=== PATIENT | female | born 1980 | race Caucasian/White ===

== ENCOUNTER 2016-12-01 21:10 | Emergency (ER) | payer BC ==
[2016-12-01 21:24] VITALS: BP 143/78; PULSE 78; RESP 20; TEMP 98.4
[2016-12-01] MEDS ORDERED: AMOXIC-POT CLAV 875MG STARTER 2 EACH TABLET PO STA (21:48)
[2016-12-01] MEDS ORDERED: CIPROFLOXACIN 0.3% OPHTH SOLN 2.5 ML BTL RIGHT EAR STA (21:48)
[2016-12-01] MEDS ORDERED: ACET/COD 300 MG/30 MG STARTER PACK 6 TAB BTL PO STA (21:49)
--- NOTE | 2016-12-01 21:49 | ED ---
ENT HPI - General Chief complaint: Dental/Oral Stated complaint: Dental Time Seen by Provider: 12/01/16 21:24 Source: patient, RN notes reviewed, old records reviewed Mode of arrival: ambulatory Limitations: no limitations - History of Present Illness Initial comments: Patient is a 36-year-old female with chief complaint of left ear pain and left tooth pain for approximately 2 days. Patient reports that she's had some sinus congestion and she has a cold. She denies any significant fever. She reports that her ear feels swollen and she cannot hear out of it. She states that she does have pain over tooth #14. She reports that she's had this tooth fractured many months ago. She has a follow-up with her dentist however she did not have the money at this time. Patient states that for the past few days and if she bites she does have some pain with her teeth. She denies any neck pain, headache, changes in vision. She denies any chest pain or shortness of breath. She denies any abdominal pain nausea or vomiting. Patient has had no recent antibiotics. - Related Data Previous Rx's Medication Instructions Recorded Acetaminophen-Codeine 300-30mg 1 tab PO Q4H PRN #20 tablet 12/01/16 [Tylenol #3] Amoxicillin/Potassium Clav 1 tab PO Q12HR #20 tab 12/01/16 [Augmentin 875-125 Tablet] Allergies Allergy/AdvReac Type Severity Reaction Status Date / Time Sulfa (Sulfonamide Allergy Unknown Verified 12/01/16 21:24 Antibiotics) Childhood Review of Systems ROS Statement: Those systems with pertinent positive or pertinent negative responses have been documented in the HPI. ROS Other: All systems not noted in ROS Statement are negative. Past Medical History Past Medical History: No Reported History History of Any Multi-Drug Resistant Organisms: None Reported Past Surgical History: No Surgical Hx Reported Past Psychological History: No Psychological Hx Reported Smoking Status: Current every day smoker Past Alcohol Use History: None Reported Past Drug Use History: None Reported General Exam - General Exam Comments Initial Comments: Pleasant 36-year-old female in no acute distress. Limitations: no limitations General appearance: alert, in no apparent distress Head exam: Present: atraumatic, normocephalic, normal inspection Eye exam: Present: normal appearance, PERRL, EOMI. Absent: scleral icterus, conjunctival injection, periorbital swelling ENT exam: Present: normal exam, mucous membranes moist, other (No mastoid tenderness.). Absent: normal oropharynx (Patient has fractured tooth 14. No evidence of abscess, erythema or drainage. ), TM's normal bilaterally (Patient has left ear pain and swelling of TM. Patient has evidence of effusion. ) Neck exam: Present: normal inspection. Absent: tenderness, meningismus, lymphadenopathy Respiratory exam: Present: normal lung sounds bilaterally. Absent: respiratory distress, wheezes, rales, rhonchi, stridor Cardiovascular Exam: Present: regular rate, normal rhythm, normal heart sounds. Absent: systolic murmur, diastolic murmur, rubs, gallop, clicks GI/Abdominal exam: Present: soft, normal bowel sounds. Absent: distended, tenderness, guarding, rebound, rigid Extremities exam: Present: normal inspection, full ROM, normal capillary refill. Absent: tenderness, pedal edema, joint swelling, calf tenderness Back exam: Present: normal inspection Neurological exam: Present: alert, oriented X3, CN II-XII intact Psychiatric exam: Present: normal affect, normal mood Skin exam: Present: warm, dry, intact, normal color. Absent: rash Course Vital Signs 12/01/16 21:23 Temperature 98.4 F Pulse Rate 78 Respiratory 20 Rate Blood Pressure 143/78 O2 Sat by Pulse 98 Oximetry Medical Decision Making - Medical Decision Making This is a 36-year-old female chief complaint of left ear pain and effusion for 2 days. She reports she's taken Motrin however does not help. Patient does have significant effusion in the left ear. Patient be treated with Augmentin and Cipro drops. Discussed that she can take Tylenol with Codeine for severe pain. Discussed with the patient that she needs to follow-up with her dentist. Discussed the importance of taking a decongestant such as Sudafed or Mucinex for the fluid behind the ear. Patient agrees treatment plan will comply. Return parameters were discussed. Discussed close follow-up with primary care provider. Disposition Clinical Impression: Left middle ear infection, Toothache, Fractured tooth Disposition: HOME SELF-CARE Condition: Good Instructions: Toothache (ED), Earache (ED) Additional Instructions: Patient advised to follow up with primary care and ENT specialist if symptoms continue to persist. Return to the emergency department if any alarming signs or symptoms occur including severe drainage from the ear severe headache or dizziness. Patient should take entire antibiotic prescription and take pain medications as directed. Patient also needs to take keep decongestant such as Mucinex or Sudafed. Follow-up with your dentist in regards to dental pain. Prescriptions: Acetaminophen-Codeine 300-30mg [Tylenol #3] 1 tab PO Q4H PRN #20 tablet PRN Reason: Pain Amoxicillin/Potassium Clav [Augmentin 875-125 Tablet] 1 tab PO Q12HR #20 tab Referrals: Annie Pool MD [Primary Care Provider] - 1-2 days Time of Disposition: 21:51
== END 2016-12-01 22:19 | disposition home or self-care (01) ==
LOC: EC 21:10
DX: S02.5XXA Fracture of tooth (traumatic), initial encounter for closed fracture (principal); H66.92 Otitis media, unspecified, left ear; F17.200 Nicotine dependence, unspecified, uncomplicated; Z88.2 Allergy status to sulfonamides; X58.XXXA Exposure to other specified factors, initial encounter
CPT/HCPCS: 99283

== ENCOUNTER 2017-04-10 16:49 | Emergency (ER) | payer BC, OTHER ==
[2017-04-10 16:53] VITALS: BP 114/71; PULSE 87; RESP 20; TEMP 98.2
--- NOTE | 2017-04-10 17:05 | ED ---
Upper Extremity HPI - General Chief Complaint: Extremity Injury, Upper Stated Complaint: Thumb Injury Time Seen by Provider: 04/10/17 16:53 Source: patient, RN notes reviewed, old records reviewed Mode of arrival: ambulatory Limitations: no limitations - History of Present Illness Initial Comments: This is a 36 year old female with CC of right thumb pain for 3 weeks. Patient states she initially injured her finger after dropping a log on it. Patient reports she has range of motion of her finger and thumb. She relates she is concerned due to prolonged pain, and wants to ensure it is not broken. Patient reports they pain is worse with movment of the thumb. Denies any peripheral paresthesias. - Related Data Home Medications Medication Instructions Recorded Confirmed No Known Home Medications [No 04/10/17 04/10/17 Known Home Medications] Allergies Allergy/AdvReac Type Severity Reaction Status Date / Time Sulfa (Sulfonamide Allergy Unknown Verified 04/10/17 16:52 Antibiotics) Childhood Review of Systems ROS Statement: Those systems with pertinent positive or pertinent negative responses have been documented in the HPI. ROS Other: All systems not noted in ROS Statement are negative. Past Medical History Past Medical History: No Reported History History of Any Multi-Drug Resistant Organisms: None Reported Past Surgical History: No Surgical Hx Reported Past Psychological History: No Psychological Hx Reported Smoking Status: Current every day smoker Past Alcohol Use History: None Reported Past Drug Use History: None Reported General Exam - General Exam Comments Initial Comments: This is a 36 year old female, no distress. Limitations: no limitations General appearance: alert, in no apparent distress Head exam: Present: atraumatic, normocephalic, normal inspection Eye exam: Present: normal appearance, PERRL, EOMI. Absent: scleral icterus, conjunctival injection, periorbital swelling ENT exam: Present: normal exam, mucous membranes moist Neck exam: Present: normal inspection. Absent: tenderness, meningismus, lymphadenopathy Respiratory exam: Present: normal lung sounds bilaterally. Absent: respiratory distress, wheezes, rales, rhonchi, stridor Cardiovascular Exam: Present: regular rate, normal rhythm, normal heart sounds. Absent: systolic murmur, diastolic murmur, rubs, gallop, clicks GI/Abdominal exam: Present: soft, normal bowel sounds. Absent: distended, tenderness, guarding, rebound, rigid Extremities exam: Present: normal inspection, full ROM, normal capillary refill. Absent: tenderness, pedal edema, joint swelling, calf tenderness Right Hand Wrist exam: Present: normal inspection, full ROM Neuro motor exam: Present: wrist extension intact, thumb opposition intact, thumb IP flexion intact, thumb adduction intact, fingers 2-5 abduction intact Neurosensory exam: Present: radial nerve intact, ulnar nerve intact, median nerve intact Vascular: Present: normal capillary refill Back exam: Present: normal inspection Neurological exam: Present: alert, oriented X3, CN II-XII intact Psychiatric exam: Present: normal affect, normal mood Skin exam: Present: warm, dry, intact, normal color. Absent: rash Course Vital Signs 04/10/17 16:51 Temperature 98.2 F Pulse Rate 87 Respiratory 20 Rate Blood Pressure 114/71 O2 Sat by Pulse 97 Oximetry Medical Decision Making - Medical Decision Making This is a 36 year old female with CC of right thumb pain for 3 weeks. Patient states she initially injured her finger after dropping a log on it. Patient reports she has range of motion of her finger and thumb. She relates she is concerned due to prolonged pain, and wants to ensure it is not broken. Patient xray was reviewed, negative for any acute process. Patient has full range of motion of thumb, neurovacularly intact. Xray was reviewed and shows no osseous abnormlaity, correlate for ligamentous injury. Patient placed in a paul wrap, advised follow up [facility] orthopedic physician. REturn paramters discused. - Radiology Data Radiology results: report reviewed No acute fracture, correlate for ligamentous injury. Disposition Clinical Impression: Strain of thumb Disposition: HOME SELF-CARE Condition: Good Instructions: Hand Sprain (ED) Additional Instructions: Patient advised to take Motrin or Tylenol for pain. Wear the splint. Return to the emergency department if any alarming signs or symptoms occur. Referrals: Annie Pool MD [Primary Care Provider] - 1-2 days Time of Disposition: 17:32
--- NOTE | 2017-04-10 17:29 | XR ---
First digit right hand HISTORY: Trauma and pain 3 views of the first digit of the right hand No comparisons Bone mineralization, joint spaces are maintained. I question some mild subluxation, no natalie dislocat ion at the metacarpophalangeal joint. Correlate for ligamentous laxity. IMPRESSION: No acute fracture, correlate for soft tissue injury.
== END 2017-04-10 17:38 | disposition home or self-care (01) ==
LOC: EC 16:49
DX: S56.011A Strain of flexor muscle, fascia and tendon of right thumb at forearm level, initial encounter (principal); F17.200 Nicotine dependence, unspecified, uncomplicated; Z88.2 Allergy status to sulfonamides; W20.8XXA Other cause of strike by thrown, projected or falling object, initial encounter
CPT/HCPCS: 29125; 99283

== ENCOUNTER 2017-08-19 09:48 | Emergency (ER) | payer OTHER ==
[2017-08-19] MEDS ORDERED: DIPH,PERTUS(ACELL)TETVAC-LF 0.5 ML VIAL IM ONE (11:37)
[2017-08-19 11:42] VITALS: RESP 19
--- NOTE | 2017-08-19 12:16 | ED ---
Upper Extremity HPI - General Chief Complaint: Extremity Injury, Upper Stated Complaint: Jaw pain Time Seen by Provider: 08/19/17 11:10 Source: patient Mode of arrival: ambulatory Limitations: no limitations - History of Present Illness Initial Comments: This is a 37-year-old female who presents with several complaints this morning. She states that about a month ago she slipped and fell on ice but since then has not been able to flex the tip of her right ring finger she also states however that in the interim between then and now she did cut her right thumb on a slicer about couple weeks ago and she states she woke up this morning with pain to the right side of her jaw sweats when she tries open her jaw she also states she has pain that radiates to the middle of her right arm and she also has some pain to the metacarpal phalangeal joint of the right thumb. She denies any other pain or injury she does not related to the fall she has no complaints of any other injuries no complaints of dental pain or cavities. No fevers chills nausea vomiting sweats or other symptoms - Related Data Home Medications Medication Instructions Recorded Confirmed Ibuprofen [Motrin Ib] 200 mg PO Q6H PRN 08/19/17 08/19/17 Vitamin B Complex 1 cap PO DAILY 08/19/17 08/19/17 Previous Rx's Medication Instructions Recorded Cyclobenzaprine [Flexeril] 10 mg PO TID #14 tab 08/19/17 Ibuprofen 800 mg PO Q6HR PRN #20 tablet 08/19/17 Allergies Allergy/AdvReac Type Severity Reaction Status Date / Time Sulfa (Sulfonamide Allergy Unknown Verified 08/19/17 10:08 Antibiotics) Childhood Review of Systems ROS Statement: Those systems with pertinent positive or pertinent negative responses have been documented in the HPI. ROS Other: All systems not noted in ROS Statement are negative. Past Medical History Past Medical History: No Reported History Additional Past Medical History / Comment(s): MS, but does not take medication for it per patient History of Any Multi-Drug Resistant Organisms: None Reported Past Surgical History: No Surgical Hx Reported Past Psychological History: No Psychological Hx Reported Smoking Status: Current every day smoker Past Alcohol Use History: None Reported Past Drug Use History: None Reported General Exam - General Exam Comments Initial Comments: This is a well-developed well-nourished awake alert oriented 3 female Limitations: no limitations General appearance: alert, in no apparent distress Head exam: Present: atraumatic, normocephalic, normal inspection Eye exam: Present: normal appearance, PERRL, EOMI. Absent: scleral icterus, conjunctival injection, periorbital swelling ENT exam: Present: mucous membranes moist, other (Sinus palpation of the right TMJ with opening and closing of the mouth. No step-off or crepitation) Neck exam: Present: normal inspection, full ROM, other (Spinous process tenderness there is tenderness palpation of the lateral right and mid trapezius muscle. No paraspinous muscle tenderness.). Absent: lymphadenopathy Respiratory exam: Present: normal lung sounds bilaterally. Absent: respiratory distress, wheezes, rales, rhonchi, stridor Cardiovascular Exam: Present: regular rate, normal rhythm, normal heart sounds. Absent: systolic murmur, diastolic murmur, rubs, gallop, clicks Extremities exam: Present: normal inspection, normal capillary refill, other ( Tennis palpation or range of motion of the right shoulder no tenderness palpation of the right arm and no palpable cords no elbow tenderness no forearm tenderness or some mild tenderness over the first metacarpal phalangeal joint. No step-off or crepitation and patient is unable to flex the right ring finger distal phalanx.) Back exam: Absent: tenderness Neurological exam: Present: alert, oriented X3, CN II-XII intact Psychiatric exam: Present: normal affect, normal mood Skin exam: Present: warm, dry, intact, normal color. Absent: rash Course Vital Signs 08/19/17 08/19/17 09:52 11:41 Temperature 98.3 F Pulse Rate 100 74 Respiratory 18 19 Rate Blood Pressure 134/90 134/81 O2 Sat by Pulse 100 98 Oximetry Medical Decision Making - Medical Decision Making The patient did present with multiple problems. There is some evidence of TMJ also the evidence of the distal flexor tendon of the right fourth finger as well as pain going down the arm from the trapezius. Patient will be placed on anti-inflammatories and muscle relaxers she is referred over to orthopedics also. - Radiology Data Radiology results: report reviewed (I did review the imaging and reports no acute findings.), image reviewed Disposition Clinical Impression: Trapezius muscle strain, TMJ arthralgia, Injury of flexor tendon of right hand , Radicular pain in right arm Disposition: HOME SELF-CARE Condition: Good Instructions: Neck Pain (ED), Musculoskeletal Pain (ED), Tendon Rupture (ED) Prescriptions: Cyclobenzaprine [Flexeril] 10 mg PO TID #14 tab Ibuprofen 800 mg PO Q6HR PRN #20 tablet PRN Reason: Pain Referrals: Annie Pool MD [Primary Care Provider] - 1-2 days Enoc Byrd DO [Doctor of Osteopathic Medicine] - 1-2 days
--- NOTE | 2017-08-19 12:26 | XR ---
EXAMINATION TYPE: XR hand complete RT DATE OF EXAM: 08/19/2017 CLINICAL HISTORY: pain TECHNIQUE: Frontal, lateral and oblique images of the right hand are obtained. COMPARISON: None. FINDINGS: There is no acute fracture/dislocation evident. The joint spaces appear within normal limi ts. The overlying soft tissue appears unremarkable. IMPRESSION: There is no acute fracture or dislocation ICD 10 NO FRACTURE, INITIAL EVALUATION
--- NOTE | 2017-08-19 12:30 | XR ---
EXAMINATION TYPE: XR mandible complete DATE OF EXAM: 08/19/2017 COMPARISON: NONE HISTORY: Right jaw TECHNIQUE: 5 views submitted FINDINGS: Osseous structures intact. Joint spaces. IMPRESSION: 1. No definite acute fracture. If symptoms persist follow-up CT scan could be obtained.
--- NOTE | 2017-08-19 12:30 | XR ---
EXAMINATION TYPE: XR cervical spine comp DATE OF EXAM: 08/19/2017 CLINICAL HISTORY: pain COMPARISON: NONE TECHNIQUE: Frontal, lateral, oblique, swimmers, and open mouth view of the cervical spine are obtaine d. FINDINGS: The cervical spine is visualized in its entirety from C1 thru the top of T1 level. It is s atisfactory in alignment without evidence of acute fracture or dislocation. The pre-vertebral soft t issue appears within normal limits. Mild degenerative narrowing at C5-6. The C1-C2 articulation is un remarkable on the open mouth view. The oblique images are within normal limits. IMPRESSION: No acute fracture or dislocation is seen in the cervical spine.ICD 10 NO FRACTURE, INITI AL EVALUATION
[2017-08-19 13:20] VITALS: BP 119/78; PULSE 71; TEMP 97.7
== END 2017-08-19 13:25 | disposition home or self-care (01) ==
LOC: EC 09:48
DX: S46.811A Strain of other muscles, fascia and tendons at shoulder and upper arm level, right arm, initial encounter (principal); S66.104A Unspecified injury of flexor muscle, fascia and tendon of right ring finger at wrist and hand level, initial encounter; M26.621 Arthralgia of right temporomandibular joint; F17.200 Nicotine dependence, unspecified, uncomplicated; Z79.899 Other long term (current) drug therapy; Z88.2 Allergy status to sulfonamides; Z23 Encounter for immunization; X58.XXXA Exposure to other specified factors, initial encounter
CPT/HCPCS: 70110; 72050; 90471; 90715; 99283

== ENCOUNTER 2017-10-04 11:24 | Emergency (ER) | payer OTHER ==
[2017-10-04 11:36] VITALS: BP 113/77; PULSE 81; RESP 16; TEMP 97.2
--- NOTE | 2017-10-04 12:30 | ED ---
Upper Extremity HPI - General Chief Complaint: Extremity Injury, Upper Stated Complaint: Hand pain Time Seen by Provider: 10/04/17 12:00 Source: patient Mode of arrival: ambulatory Limitations: no limitations - History of Present Illness Initial Comments: 37-year-old female patient presents to the emergency department today for evaluation of right hand pain. Patient reports that she did have an injury to the hand a couple of weeks ago. States that last evening she was caring a heavy tray when she felt a "pop" in her hand. She states she now has a hard lump to the palmar aspect of the hand just below the fourth digit. She states that the hand has been hurting nonstop since last evening. She states she did take Tylenol 3 without relief of symptoms. She denies any numbness or tingling to the hand. Denies any difficulty with range of motion of the fingers. Patient denies any headache, neck pain, back pain, chest pain, shortness of breath, dizziness, weakness, abdominal pain, nausea, vomiting, or difficulties with bowel movements or urination. - Related Data Home Medications Medication Instructions Recorded Confirmed Ibuprofen [Motrin Ib] 200 mg PO Q6H PRN 08/19/17 10/04/17 Acetaminophen-Codeine 300-30mg 1 tab PO BID PRN 10/04/17 10/04/17 [Tylenol #3] Allergies Allergy/AdvReac Type Severity Reaction Status Date / Time Sulfa (Sulfonamide Allergy Unknown Verified 10/04/17 12:00 Antibiotics) Childhood Review of Systems ROS Statement: Those systems with pertinent positive or pertinent negative responses have been documented in the HPI. ROS Other: All systems not noted in ROS Statement are negative. Past Medical History Past Medical History: No Reported History Additional Past Medical History / Comment(s): MS, but does not take medication for it per patient History of Any Multi-Drug Resistant Organisms: None Reported Past Surgical History: No Surgical Hx Reported Past Psychological History: No Psychological Hx Reported Smoking Status: Current every day smoker Past Alcohol Use History: None Reported Past Drug Use History: None Reported General Exam Limitations: no limitations General appearance: alert, in no apparent distress, other (This is a well- developed, well-nourished adult female patient in no acute distress. Vital signs upon presentation are temperature 97.2F, pulse 81, respirations 16, blood pressure 113/77, pulse ox 99% on room air.) Eye exam: Present: normal appearance, PERRL, EOMI. Absent: scleral icterus, conjunctival injection, periorbital swelling Respiratory exam: Present: normal lung sounds bilaterally. Absent: respiratory distress, wheezes, rales, rhonchi, stridor Cardiovascular Exam: Present: regular rate, normal rhythm, normal heart sounds. Absent: systolic murmur, diastolic murmur, rubs, gallop, clicks Extremities exam: Present: full ROM, tenderness (Tenderness over the fourth metacarpal just beneath the fourth digit.), normal capillary refill, other ( Swelling noted to the palmar aspect of the right hand. Skin is otherwise pink, warm, and dry. Cap refills less than 3 seconds. Radial pulses 2+ and equal bilaterally.). Absent: normal inspection, pedal edema, joint swelling, calf tenderness Neurological exam: Present: alert, oriented X3, CN II-XII intact Psychiatric exam: Present: normal affect, normal mood Skin exam: Present: warm, dry, intact, normal color. Absent: rash Course Vital Signs 10/04/17 11:32 Temperature 97.2 F L Pulse Rate 81 Respiratory 16 Rate Blood Pressure 113/77 O2 Sat by Pulse 99 Oximetry Medical Decision Making - Medical Decision Making 37-year-old female patient percents to the emergency department today for complaints of right hand pain. Physical examination is reveal some tenderness and soft tissue swelling over the fourth metacarpal and palmar aspect. Neurovascular status is intact. X-rays negative for any acute fracture dislocation. Did discuss findings with the patient and recommended she follow up with an orthopedic physician for further evaluation and possible MRI. She is instructed to continue taking home pain medication. She is instructed to return here immediately for any new, worsening, or concerning symptoms. She verbalizes understanding and agrees with this plan. - Radiology Data Radiology results: report reviewed, image reviewed 3 views of the right hand are obtained, no fracture or dislocation evident. Joint spaces and the right hand appear within normal limits. The overlying soft tissue appears unremarkable. Impression by Dr. Uriarte shows no acute fracture dislocation of the right hand. MRI could be performed to evaluate tenderness or soft tissue injury in a patient with persistent pain. Disposition Clinical Impression: Hand pain Disposition: HOME SELF-CARE Condition: Good Instructions: Arthralgia (ED) Additional Instructions: Use Serafin wrap for comfort and support. Follow-up with orthopedics as soon as possible for further evaluation. Continue taking her home pain medication as directed. Return here immediately for any new, worsening, or concerning symptoms. Referrals: Annie Pool MD [Primary Care Provider] - 1-2 days Jp Mckeon DO [Doctor of Osteopathic Medicine] - 1-2 days Time of Disposition: 12:55
--- NOTE | 2017-10-04 12:43 | XR ---
EXAMINATION TYPE: XR hand complete RT DATE OF EXAM: 10/04/2017 CLINICAL HISTORY: Fourth digit pain. Injury approximately one month prior. TECHNIQUE: Frontal, lateral and oblique images of the right hand are obtained. COMPARISON: 08/19/2018 FINDINGS: There is no acute fracture/dislocation evident in the right hand. The joint spaces in the right hand appear within normal limits. The overlying soft tissue appears unremarkable. IMPRESSION: There is no acute fracture or dislocation in the right hand. MRI could be performed to e valuate tenderness or soft tissue injury in a patient with persistent pain.
== END 2017-10-04 13:06 | disposition home or self-care (01) ==
LOC: EC 11:24
DX: M79.641 Pain in right hand (principal); M79.89 Other specified soft tissue disorders; F17.200 Nicotine dependence, unspecified, uncomplicated; Z88.2 Allergy status to sulfonamides
CPT/HCPCS: 99283

== ENCOUNTER 2018-05-17 19:26 | Emergency (ER) | payer OTHER ==
[2018-05-17 19:35] VITALS: BP 145/87; PULSE 94; TEMP 98
--- NOTE | 2018-05-17 20:02 | XR ---
EXAMINATION TYPE: XR chest 2V DATE OF EXAM: 05/17/2018 COMPARISON: 10/30/2011 HISTORY: Cough TECHNIQUE: Frontal and lateral views of the chest are obtained. FINDINGS: Heart and mediastinum are normal. Lungs are clear. Diaphragm is normal. Bony thorax appear s normal. IMPRESSION: Normal chest. No change.
[2018-05-17 20:08] VITALS: RESP 20
[2018-05-17] MEDS ORDERED: predniSONE 20 MG TAB PO STA (20:08)
[2018-05-17] MEDS ORDERED: IPRATROPIUM-ALBUTEROL 3 ML NEB INHALATION STA (20:08)
--- NOTE | 2018-05-17 20:19 | ED ---
URI HPI - General Chief Complaint: Upper Respiratory Infection Stated Complaint: cough Time Seen by Provider: 05/17/18 19:42 Source: patient Mode of arrival: ambulatory Limitations: no limitations - History of Present Illness Initial Comments: 37-year-old female with past medical history of MS, half pack per day smoking 20 years who presents for chief complaint of congestion, dry cough 2 weeks. Patient states that she has been congested the past 2 weeks taking Mucinex, DayQuil/NyQuil however has not received any relief from these products. Patient denies body aches, rigors, wheezing, dyspnea upon exertion, chest pain, shortness of breath, fever, chills, sore throat, diarrhea, nausea, vomiting, ear pain or any other associated symptoms. Pt states she has had walking pneumonia in the past and wanted to make sure this was not what she was experiencing. Remainder of ROS (-). - Related Data Previous Rx's Medication Instructions Recorded Albuterol Inhaler [Ventolin Hfa 1 - 2 puff INHALATION RT-Q6H PRN 7 05/17/18 Inhaler] Days #1 inhaler Azithromycin [Zithromax Tri-Killian] 500 mg PO DAILY 3 Days #3 tab 05/17/18 Loratadine [Claritin] 10 mg PO DAILY 5 Days #5 tab 05/17/18 Allergies Allergy/AdvReac Type Severity Reaction Status Date / Time Sulfa (Sulfonamide Allergy Unknown Verified 10/04/17 12:00 Antibiotics) Childhood Review of Systems ROS Statement: Those systems with pertinent positive or pertinent negative responses have been documented in the HPI. ROS Other: All systems not noted in ROS Statement are negative. Constitutional: Denies: fever, chills, weight change, night sweats Eyes: Denies: eye pain ENT: Denies: ear pain, throat pain Respiratory: Reports: cough. Denies: dyspnea, wheezes, hemoptysis, stridor Cardiovascular: Denies: chest pain, palpitations, dyspnea on exertion Endocrine: Denies: fatigue Gastrointestinal: Denies: abdominal pain, nausea, vomiting, diarrhea, constipation Genitourinary: Denies: urgency, dysuria, frequency Musculoskeletal: Denies: back pain Skin: Denies: rash, lesions Neurological: Denies: headache Past Medical History Past Medical History: No Reported History Additional Past Medical History / Comment(s): MS, but does not take medication for it per patient History of Any Multi-Drug Resistant Organisms: None Reported Past Surgical History: No Surgical Hx Reported Past Psychological History: No Psychological Hx Reported Smoking Status: Current every day smoker Past Alcohol Use History: None Reported Past Drug Use History: None Reported General Exam - General Exam Comments Initial Comments: General: The patient is awake and alert, in no distress, and does not appear acutely ill. Eye: Pupils are equal, round and reactive to light, extra-ocular movements are intact. No nystagmus. There is normal conjunctiva bilaterally. No signs of icterus. Ears, nose, mouth and throat: There are moist mucous membranes and no oral lesions. Oropharynx is non erythematous, no enlargement of tonsils or exudates. Post nasal drip. Neck: The neck is supple, there is no tenderness or JVD. Cardiovascular: There is a regular rate and rhythm. No murmur, rub or gallop is appreciated. Respiratory: No use of accessory muscles, cyanosis, retractions. Respirations are non-labored, breath sounds are equal. No wheezes, stridor, rales. Mild expiratory rhonchi in all lung jaime. Musculoskeletal: Normal ROM, no tenderness. Strength 5/5. Sensation intact. Radial pulses equal bilaterally 2+. Neurological: A&O x 3. CN II-XII intact, There are no obvious motor or sensory deficits. Coordination appears grossly intact. Speech is normal. Skin: Skin is warm and dry and no rashes or lesions are noted. Psychiatric: Cooperative, appropriate mood & affect, normal judgment. Limitations: no limitations Course Vital Signs 05/17/18 05/17/18 05/17/18 19:31 20:07 20:26 Temperature 98.0 F Pulse Rate 94 94 Respiratory 18 20 Rate Blood Pressure 145/87 O2 Sat by Pulse 98 Oximetry 05/17/18 20:33 Temperature Pulse Rate 94 Respiratory Rate Blood Pressure O2 Sat by Pulse Oximetry Medical Decision Making - Medical Decision Making CXR (-) . PE as noted above, pt given Duoneb for mild rhonchi. Rhonchi resolved with treatment. At this time I feel pt has a URI. Case discussed in detail with Dr. Stovall. Pt given RX for azithromycin x3 days, albuterol inhaler and claritin for symptom relief/occult pneumonia. Pt appears well VS within acceptable limits, pt is stable for discharge with primary care f/u in the next 1-2 days. All results were discussed with patient. Patient agrees with plan, denying any questions at this time. Disposition Clinical Impression: Upper respiratory infection Disposition: HOME SELF-CARE Condition: Good Instructions: Upper Respiratory Infection (ED) Additional Instructions: Please use medication as discussed. Please follow-up with family doctor in the next 2 days. Please return to emergency room if the symptoms increase or worsen or for any other concerns. Prescriptions: Albuterol Inhaler [Ventolin Hfa Inhaler] 1 - 2 puff INHALATION RT-Q6H PRN 7 Days #1 inhaler PRN Reason: Wheezing Azithromycin [Zithromax Tri-Killian] 500 mg PO DAILY 3 Days #3 tab Loratadine [Claritin] 10 mg PO DAILY 5 Days #5 tab Is patient prescribed a controlled substance at d/c from ED?: No Referrals: Annie Pool MD [Primary Care Provider] - 1-2 days Time of Disposition: 20:41
== END 2018-05-17 20:45 | disposition home or self-care (01) ==
LOC: EC 19:26
DX: J06.9 Acute upper respiratory infection, unspecified (principal); F17.210 Nicotine dependence, cigarettes, uncomplicated; Z88.2 Allergy status to sulfonamides
CPT/HCPCS: 99283; 94640; 71046; J7512

== ENCOUNTER 2018-05-22 15:20 | Emergency (ER) | payer OTHER ==
[2018-05-22] MEDS ORDERED: IPRATROPIUM-ALBUTEROL 3 ML NEB INHALATION STA ×2 (15:36→16:24)
[2018-05-22] MEDS ORDERED: methylPREDNISolone SOD SUCCI 125 MG/2 ML VIAL IV STA (15:36)
[2018-05-22] MEDS ORDERED: SODIUM CHLORIDE 0.9% 1,000 ML IV STA (15:36)
--- NOTE | 2018-05-22 15:44 | ED ---
URI HPI - General Chief Complaint: Upper Respiratory Infection Stated Complaint: URI Time Seen by Provider: 05/22/18 15:32 Source: patient, RN notes reviewed, old records reviewed Mode of arrival: ambulatory Limitations: no limitations - History of Present Illness Initial Comments: This is a 37-year-old female who has a 20 year history of smoking one half pack cigarettes per day but no diagnosis of asthma or COPD who presents today with complaints of persistent cough shortness of breath a feeling of full of some left ear and neck and better in spite of medications that was given to her one week ago in this emergency department. She presented at that time with a two- week history of cough upper respiratory symptoms she was given antibiotics and updrafts she states she's not been able to smoke as much. She denies any fevers chills sweats chest pain or other symptoms at this time MD Complaint: cough, nasal congestion, other - Related Data Previous Rx's Medication Instructions Recorded Albuterol Inhaler [Ventolin Hfa 1 - 2 puff INHALATION RT-Q6H PRN 7 05/17/18 Inhaler] Days #1 inhaler Azithromycin [Zithromax Tri-Killian] 500 mg PO DAILY 3 Days #3 tab 05/17/18 Loratadine [Claritin] 10 mg PO DAILY 5 Days #5 tab 05/17/18 Doxycycline [Vibramycin] 100 mg PO BID #14 cap 05/22/18 Ipratropium-Albuterol Nebulize 3 ml INHALATION Q6HR PRN #120 neb 05/22/18 [Duoneb 0.5 mg-3 mg/3 ml Soln] Ipratropium/Albuterol Sulfate 2 puff INHALATION QID #1 inhaler 05/22/18 [Combivent Respimat Inhaler] Promethazine HCl [Phenergan Syrup] 12.5 mg PO Q6HR #280 bottle 05/22/18 predniSONE 20 mg PO BID #10 tab 05/22/18 Allergies Allergy/AdvReac Type Severity Reaction Status Date / Time Sulfa (Sulfonamide Allergy Unknown Verified 05/22/18 15:30 Antibiotics) Childhood Review of Systems ROS Statement: Those systems with pertinent positive or pertinent negative responses have been documented in the HPI. ROS Other: All systems not noted in ROS Statement are negative. Past Medical History Past Medical History: No Reported History Additional Past Medical History / Comment(s): MS, but does not take medication for it per patient History of Any Multi-Drug Resistant Organisms: None Reported Past Surgical History: No Surgical Hx Reported Past Psychological History: No Psychological Hx Reported Smoking Status: Current every day smoker Past Alcohol Use History: None Reported Past Drug Use History: None Reported General Exam - General Exam Comments Initial Comments: This is a well-developed well-nourished awake alert oriented 3 female Limitations: no limitations General appearance: alert, in no apparent distress Head exam: Present: atraumatic, normocephalic, normal inspection Eye exam: Present: normal appearance, PERRL, EOMI. Absent: scleral icterus, conjunctival injection, periorbital swelling ENT exam: Present: mucous membranes dry, other (Pelvis the left tympanic membrane) Neck exam: Present: normal inspection. Absent: tenderness, meningismus, lymphadenopathy Respiratory exam: Present: wheezes, decreased breath sounds (Diffuse wheezing. Expiratory and inspiratory). Absent: respiratory distress, rales, rhonchi, stridor Cardiovascular Exam: Present: regular rate, normal rhythm, normal heart sounds. Absent: systolic murmur, diastolic murmur, rubs, gallop, clicks GI/Abdominal exam: Present: soft, normal bowel sounds. Absent: distended, tenderness, guarding, rebound, rigid Extremities exam: Present: normal inspection, full ROM, normal capillary refill. Absent: tenderness, pedal edema, joint swelling, calf tenderness Back exam: Present: normal inspection Neurological exam: Present: alert, oriented X3, CN II-XII intact Psychiatric exam: Present: normal affect, normal mood Skin exam: Present: warm, dry, intact, normal color. Absent: rash Course Vital Signs 05/22/18 05/22/18 05/22/18 15:28 15:30 16:19 Temperature 97.9 F Pulse Rate 106 H 88 Respiratory 20 16 Rate Blood Pressure 136/95 O2 Sat by Pulse 97 Oximetry 05/22/18 05/22/18 05/22/18 16:25 16:26 16:35 Temperature Pulse Rate 88 86 86 Respiratory Rate Blood Pressure O2 Sat by Pulse Oximetry - Reevaluation(s) Reevaluation #1: 05/22/18 16:04 The patient has refused IV or lab work. She has agreed to an updraft and a chest x-ray. Reevaluation #2: 05/22/18 16:31 Reevaluation after the initial updraft revealed increased aeration still a lot of wheezing patient is required a repeat updraft. Medical Decision Making - Medical Decision Making Reevaluation patient reveals much improvement in her aeration still some occasional scattered wheezes. After long discussions with the patient she will be discharged with appropriate medication. She is a follow-up with her doctor return. She again was encouraged to quit smoking - Radiology Data Radiology results: report reviewed (I did review the imaging and report no acute findings.), image reviewed Disposition Clinical Impression: Asthmatic bronchitis, Smoking Disposition: HOME SELF-CARE Condition: Good Instructions: Bronchospasm (ED), Wheezing (ED), How to Use a Nebulizer (ED), Acute Bronchitis (ED), How to Stop Smoking (ED) Prescriptions: Doxycycline [Vibramycin] 100 mg PO BID #14 cap Ipratropium-Albuterol Nebulize [Duoneb 0.5 mg-3 mg/3 ml Soln] 3 ml INHALATION Q6HR PRN #120 neb PRN Reason: Dyspnea Ipratropium/Albuterol Sulfate [Combivent Respimat Inhaler] 2 puff INHALATION QID #1 inhaler predniSONE 20 mg PO BID #10 tab Promethazine HCl [Phenergan Syrup] 12.5 mg PO Q6HR #280 bottle Is patient prescribed a controlled substance at d/c from ED?: No Referrals: Annie Pool MD [Primary Care Provider] - 1-2 days
[2018-05-22] MEDS ORDERED: predniSONE 50 MG TAB PO STA (16:03)
--- NOTE | 2018-05-22 16:40 | XR ---
EXAMINATION TYPE: XR chest 2V DATE OF EXAM: 05/22/2018 COMPARISON: NONE HISTORY: Difficulty breathing TECHNIQUE: Frontal and lateral views of the chest are obtained. FINDINGS: Heart and mediastinum are normal. Lungs are clear. Diaphragm is normal. Bony thorax appear s normal. IMPRESSION: Normal chest.
[2018-05-22 17:26] VITALS: BP 130/90; PULSE 90; RESP 18; TEMP 98
== END 2018-05-22 17:20 | disposition home or self-care (01) ==
LOC: EC 15:20
DX: J45.909 Unspecified asthma, uncomplicated (principal); F17.210 Nicotine dependence, cigarettes, uncomplicated; Z88.2 Allergy status to sulfonamides; Z53.29 Procedure and treatment not carried out because of patient's decision for other reasons
CPT/HCPCS: 94640 ×2; 71046; 99284; J7512

== ENCOUNTER 2019-01-15 14:39 | Emergency (ER) | payer OTHER ==
[2019-01-15 14:49] VITALS: BP 135/93; PULSE 71; RESP 18; TEMP 97.9
--- NOTE | 2019-01-15 14:57 | ED ---
Wound/Laceration HPI - General Chief Complaint: Wound/Laceration Stated Complaint: Finger Lac Time Seen by Provider: 01/15/19 14:50 Source: patient, RN notes reviewed Mode of arrival: ambulatory Limitations: no limitations - History of Present Illness Initial Comments: 38-year-old female presents emergency Department chief complaint laceration to her right hand fourth digit. Patient states his happened last night when she cut it on a broken window. Patient states she is intoxicated and did not come emergency department the time. Patient states her tetanus is up-to-date 4 years ago. Patient states she has some discomfort that finger has full range of motion denies any paresthesias. Patient states she put some tape on it which has helped her bleeding. - Related Data Previous Rx's Medication Instructions Recorded Albuterol Inhaler [Ventolin Hfa 1 - 2 puff INHALATION RT-Q6H PRN 7 05/17/18 Inhaler] Days #1 inhaler Azithromycin [Zithromax Tri-Killian] 500 mg PO DAILY 3 Days #3 tab 05/17/18 Loratadine [Claritin] 10 mg PO DAILY 5 Days #5 tab 05/17/18 Doxycycline [Vibramycin] 100 mg PO BID #14 cap 05/22/18 Ipratropium-Albuterol Nebulize 3 ml INHALATION Q6HR PRN #120 neb 05/22/18 [Duoneb 0.5 mg-3 mg/3 ml Soln] Ipratropium/Albuterol Sulfate 2 puff INHALATION QID #1 inhaler 05/22/18 [Combivent Respimat Inhaler] Promethazine HCl [Phenergan Syrup] 12.5 mg PO Q6HR #280 bottle 05/22/18 predniSONE 20 mg PO BID #10 tab 05/22/18 Cephalexin [Keflex] 500 mg PO Q8HR #21 cap 01/15/19 Allergies Allergy/AdvReac Type Severity Reaction Status Date / Time Sulfa (Sulfonamide Allergy Unknown Verified 05/22/18 15:30 Antibiotics) Childhood Review of Systems ROS Statement: Those systems with pertinent positive or pertinent negative responses have been documented in the HPI. ROS Other: All systems not noted in ROS Statement are negative. Past Medical History Past Medical History: No Reported History Additional Past Medical History / Comment(s): MS, but does not take medication for it per patient History of Any Multi-Drug Resistant Organisms: None Reported Past Surgical History: No Surgical Hx Reported Past Psychological History: No Psychological Hx Reported Smoking Status: Current every day smoker Past Alcohol Use History: None Reported Past Drug Use History: None Reported General Exam Limitations: no limitations General appearance: alert, in no apparent distress Head exam: Present: atraumatic, normocephalic, normal inspection Respiratory exam: Present: normal lung sounds bilaterally. Absent: respiratory distress, wheezes, rales, rhonchi, stridor Cardiovascular Exam: Present: regular rate, normal rhythm, normal heart sounds. Absent: systolic murmur, diastolic murmur, rubs, gallop, clicks Extremities exam: Present: other (Right hand fourth digit there is a 1 cm laceration at the PIP full range of motion neurovascular intact no active bleeding) Course Vital Signs 01/15/19 14:44 Temperature 97.9 F Pulse Rate 71 Respiratory 18 Rate Blood Pressure 135/93 O2 Sat by Pulse 97 Oximetry Medical Decision Making - Medical Decision Making 38-year-old female presented for finger laceration. This is an old wound over 12 hours old. I did recommend x-rays patient refused. Patient will have Steri- Strips placed, gauze wrap applied. Patient will given finger splint to prevent her pending for next 24 hours. Patient will follow-up with PCP and return for any worsening symptoms. She does understand risk of infection at this time. Patient was placed on antibiotics. Disposition Clinical Impression: Finger laceration Disposition: HOME SELF-CARE Condition: Stable Instructions (If sedation given, give patient instructions): Laceration (ED) Additional Instructions: Please return to the Emergency Department if symptoms worsen or any other concerns. Prescriptions: Cephalexin [Keflex] 500 mg PO Q8HR #21 cap Is patient prescribed a controlled substance at d/c from ED?: No Referrals: Annie Pool MD [Primary Care Provider] - 1-2 days Time of Disposition: 14:57
== END 2019-01-15 15:05 | disposition home or self-care (01) ==
LOC: EC 14:39
DX: S61.214A Laceration without foreign body of right ring finger without damage to nail, initial encounter (principal); F17.200 Nicotine dependence, unspecified, uncomplicated; Z88.2 Allergy status to sulfonamides; W26.8XXA Contact with other sharp object(s), not elsewhere classified, initial encounter
CPT/HCPCS: 99282

== ENCOUNTER 2019-02-11 22:49 | Observation (INO) | payer OTHER ==
[2019-02-11] MEDS ORDERED: SODIUM CHLORIDE 0.9% 1,000 ML IV STA (22:58)
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
[2019-02-11] MEDS ORDERED: KETAMINE 10 MG/ML 20 ML VIAL IV ONE (23:37)
[2019-02-11 23:48] LABS: Basophils % (A) 1 %; Eosinophils # (A) 0.2 k/uL (0-0.7); Eosinophils % (A) 3 %; HCT 45.6 % (34.0-46.0); HGB 14.9 gm/dL (11.4-16.0); Lymphocytes # (A) 1.3 k/uL (1.0-4.8); Lymphocytes % (A) 21 %; MCH 34.9 pg (25.0-35.0); MCHC 32.6 g/dL (31.0-37.0); MCV 107.1 fL (80.0-100.0); Macrocytosis Moderate; Mean Platelet Volume 6.9; Monocytes # (A) 0.5 k/uL (0-1.0); Monocytes % (A) 7 %; Neutrophils # (A) 4.2 k/uL (1.3-7.7); Neutrophils % (A) 66 %; Platelet Count 230 k/uL (150-450); RBC 4.25 m/uL (3.80-5.40); RDW 13.1 % (11.5-15.5); WBC 6.3 k/uL (3.8-10.6)
[2019-02-11 23:57] LABS: ALT 21 U/L (9-52); AST 31 U/L (14-36); African American GFR (CKD) >90 (>60 ml/min/1.73 sqM); Albumin 4.1 g/dL (3.5-5.0); Alkaline Phosphatase 90 U/L (38-126); Anion Gap 10 mmol/L; Blood Urea Nitrogen 10 mg/dL (7-17); Calcium 9.1 mg/dL (8.4-10.2); Carbon Dioxide 23 mmol/L (22-30); Chloride 111 mmol/L (98-107); Glucose 101 mg/dL (74-99); Potassium 3.7 mmol/L (3.5-5.1); Sodium 144 mmol/L (137-145); Total Bilirubin 0.4 mg/dL (0.2-1.3)
[2019-02-12 00:05] LABS: INR 0.9 (<1.2); Partial Thromboplastin Time 27.6 sec (22.0-30.0); Prothrombin Time 9.5 sec (9.0-12.0)
[2019-02-12 00:21] LABS: Alcohol 355 mg/dL
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
[2019-02-12] MEDS ORDERED: KETAMINE 10 MG/ML 20 ML VIAL IVPB STA ×3 (01:10→01:27)
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
[2019-02-12 02:37] LABS: Appearance,Urine Clear (Clear); Bilirubin,Urine Negative (Negative); Blood,Urine Negative (Negative); Color,Urine Colorless; Glucose,Urine (UA) Negative (Negative); Ketones,Urine Negative (Negative); Leukocyte Esterase,Urine Negative (Negative); Nitrite,Urine Negative (Negative); PH, Urine 6.5 (5.0-8.0); Protein,Urine Negative (Negative); Specific Gravity,Urine 1.011 (1.001-1.035); Urobilinogen,Urine <2.0 mg/dL (<2.0)
[2019-02-12 02:49] LABS: Amphetamine Screen,Urine Not Detected (NotDetected); Barbiturate Screen,Urine Not Detected (NotDetected); Benzodiazepines Screen,Urine Not Detected (NotDetected); Cocaine Screen,Urine Not Detected (NotDetected); Methadone Screen, Urine Not Detected (NotDetected); Opiate Screen,Urine Not Detected (NotDetected); Oxycodone Screen, Urine Not Detected (NotDetected); Phencyclidine Screen,Urine Not Detected (NotDetected); Tricyclic Antidepressant,Urine Not Detected (NotDetected); Urn Cannabinoid Scrn Detected (NotDetected)
[2019-02-12] MEDS ORDERED: HALOPERIDOL LACTATE 5 MG/ML 1 ML VIAL IM PRN (02:56)
[2019-02-12] MEDS ORDERED: THIAMINE 100 MG/ML 2 ML VIAL IM STA (03:00)
[2019-02-12] MEDS ORDERED: LORazepam 2 MG/ML INJ IV PRN ×3 (03:00)
[2019-02-12] MEDS ORDERED: NALOXONE 0.4 MG/ML 1 ML VIAL IV PRN (03:17)
[2019-02-12 07:25] VITALS: BP 122/76; PULSE 76; RESP 16; TEMP 97.7
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
[2019-02-13] MEDS ORDERED: THIAMINE 100 MG TAB PO SCH (07:30)
== END 2019-02-12 10:47 | disposition left against medical advice (07) ==
LOC: EC 22:49 → 1SOBS 02-12 03:18
PROVIDERS: ADMIT Internal Medicine; ATTEND Internal Medicine
DX: Z04.1 Encounter for examination and observation following transport accident (principal); F10.229 Alcohol dependence with intoxication, unspecified; S00.81XA Abrasion of other part of head, initial encounter; Y90.8 Blood alcohol level of 240 mg/100 ml or more; F12.20 Cannabis dependence, uncomplicated; F17.210 Nicotine dependence, cigarettes, uncomplicated; G35 Multiple sclerosis; Z88.2 Allergy status to sulfonamides; V89.0XXA Person injured in unspecified motor-vehicle accident, nontraffic, initial encounter
CPT/HCPCS: 96374; 96361 ×2; 96372; 99285; 36415; 93005; 86900; 86901; 80053; 84484; 85025; 85610; 85730; 86850; 81003; 81025; 80306; 80320; 72170; 71045; 72125; 70450; 71260; 74177; G0378; J2060; J1630; J3411; Q9967

== ENCOUNTER 2019-03-21 17:28 | Emergency (ER) | payer OTHER ==
[2019-03-21 17:43] VITALS: TEMP 98.7
[2019-03-21 18:38] VITALS: BP 143/91; PULSE 80; RESP 16
[2019-03-21 18:45] LABS: Appearance,Urine Cloudy (Clear); Bilirubin,Urine Negative (Negative); Blood,Urine Negative (Negative); Color,Urine Yellow; Glucose,Urine (UA) Negative (Negative); Ketones,Urine Negative (Negative); Leukocyte Esterase,Urine Negative (Negative); Mucus,Urine Rare /hpf; Nitrite,Urine Negative (Negative); Protein,Urine Trace (Negative); RBC,Urine 4 /hpf (0-5); Squamous Epithelial Cell,Urine 4 /hpf (0-4); Urobilinogen,Urine <2.0 mg/dL (<2.0); WBC,Urine 4 /hpf (0-5)
[2019-03-21] MEDS ORDERED: cefTRIAXone 250 MG VIAL IM STA (19:00)
--- NOTE | 2019-03-21 19:01 | ED ---
Female Urogenital HPI - General Chief complaint: Urogenital Stated complaint: Stomach pain Time Seen by Provider: 03/21/19 17:56 Source: patient Mode of arrival: ambulatory Limitations: no limitations - History of Present Illness Initial comments: Patient is a 38-year-old female presenting to the emergency department with complaints of vaginal discharge and irritation 2 days. Patient admits to having unprotected intercourse and thinks she may have an STD. Patient states she has low back and suprapubic pain and this is same way she felt when she had trichomonas before. Patient admits her discharge is white or creamy colored. Patient denies having fever, chills, nausea, vomiting, diarrhea. Patient has no other complaints at this time. Vital signs are stable, afebrile. Last Menstrual Period: 03/07/19 - Related Data Previous Rx's Medication Instructions Recorded Azithromycin [Zithromax] 500 mg PO DAILY 1 Days #2 tab 03/21/19 Allergies Allergy/AdvReac Type Severity Reaction Status Date / Time Sulfa (Sulfonamide Allergy Unknown Verified 03/21/19 17:43 Antibiotics) Childhood Review of Systems ROS Statement: Those systems with pertinent positive or pertinent negative responses have been documented in the HPI. ROS Other: All systems not noted in ROS Statement are negative. Past Medical History Past Medical History: No Reported History Additional Past Medical History / Comment(s): MS, but does not take medication for it per patient, ETOH abuse History of Any Multi-Drug Resistant Organisms: None Reported Past Surgical History: No Surgical Hx Reported Past Psychological History: No Psychological Hx Reported Smoking Status: Current every day smoker Past Alcohol Use History: Abuse, Daily, Heavy Past Drug Use History: None Reported, Marijuana General Exam - General Exam Comments Initial Comments: GENERAL: Well-appearing, well-nourished and in no acute distress. HEAD: Atraumatic, normocephalic. EYES: Pupils equal round and reactive to light, extraocular movements intact, sclera anicteric, conjunctiva are normal. ENT: TMs normal, nares patent, oropharynx clear without exudates. Moist mucous membranes. NECK: Normal range of motion, supple without lymphadenopathy or JVD. LUNGS: Breath sounds clear to auscultation bilaterally and equal. No wheezes rales or rhonchi. HEART: Regular rate and rhythm without murmurs, rubs or gallops. ABDOMEN: Soft, nontender, normoactive bowel sounds. No guarding, no rebound. No masses appreciated. EXTREMITIES: Normal range of motion, no pitting or edema. No clubbing or cyanosis. NEUROLOGICAL: Cranial nerves II through XII grossly intact. Normal speech, normal gait. PSYCH: Normal mood, normal affect. SKIN: Warm, Dry, normal turgor, no rashes or lesions noted. Limitations: no limitations External exam: Present: normal external exam. Absent: erythema, swelling Speculum exam: Present: vaginal discharge (White, milky). Absent: cervical discharge, vaginal bleeding, foreign body By manual exam: Present: normal by manual exam Course Vital Signs 03/21/19 03/21/19 17:41 18:37 Temperature 98.7 F Pulse Rate 111 H 80 Respiratory 18 16 Rate Blood Pressure 142/85 143/91 O2 Sat by Pulse 97 99 Oximetry Medical Decision Making - Medical Decision Making Patient is a 38-year-old female presenting with vaginal discharge 2 days. Patient minutes to having unprotected intercourse with new partners. Vital signs are stable, afebrile. exam reveals white no acute discharge, swabs were obtained. Gonorrhea and committed is pending at this time. Trichomonas was negative. UA is within normal limits. Risk and benefits of being treated for gonorrhea and committed via were discussed with the patient and she wanted treatment at this time. Patient will be given Rocephin and Rx for azithromycin. Return parameters were discussed with the patient she verbalized understanding. Discussed with patient to always use protection. Patient is stable for discharge. - Lab Data Lab Results 03/21/19 03/21/19 03/21/19 Range/Units 18:35 18:35 18:35 Urine Color Yellow Urine Appearance Cloudy H (Clear) Urine pH 8.0 (5.0-8.0) Ur Specific [place] 1.020 (1.001-1.035) Urine Protein Trace H (Negative) Urine Glucose (UA) Negative (Negative) Urine Ketones Negative (Negative) Urine Blood Negative (Negative) Urine Nitrite Negative (Negative) Urine Bilirubin Negative (Negative) Urine Urobilinogen <2.0 (<2.0) mg/dL Ur Leukocyte Esterase Negative (Negative) Urine RBC 4 (0-5) /hpf Urine WBC 4 (0-5) /hpf Ur Squamous Epith Cells 4 (0-4) /hpf Urine Mucus Rare H (None) /hpf Urine HCG, Qual Not Detected (Not Detectd) Trichomonas Ag (Rapid) Negative (Negative) Disposition Clinical Impression: Vaginal Discharge Disposition: HOME SELF-CARE Condition: Stable Instructions (If sedation given, give patient instructions): Vaginitis (ED) Additional Instructions: Please return to the Emergency Department if symptoms worsen or any other concerns. Prescriptions: Azithromycin [Zithromax] 500 mg PO DAILY 1 Days #2 tab Is patient prescribed a controlled substance at d/c from ED?: No Referrals: Eileen Keys MD [Primary Care Provider] - 1-2 days
[2019-03-22 15:07] LABS: C. trachomatis,PCR Negative (Neg,Equiv); Chlamydia trachomatis Source Cervix; N. gonorrhoeae,PCR Negative (Neg,Equiv); Neisseria Source Cervix
== END 2019-03-21 19:15 | disposition home or self-care (01) ==
LOC: EC 17:28
DX: N93.8 Other specified abnormal uterine and vaginal bleeding (principal); F17.200 Nicotine dependence, unspecified, uncomplicated; Z88.2 Allergy status to sulfonamides
CPT/HCPCS: 81001; 81025; 87808; 87491; 87591; 99284; 96372; J0696

== ENCOUNTER → 2021-01-20 | Outpatient (CLI) | payer OTHER ==
--- NOTE | 2021-01-20 13:11 | US ---
EXAMINATION TYPE: US pelvic complete DATE OF EXAM: 01/20/2021 COMPARISON: CLINICAL HISTORY: N94.6 Dysmenorrhea, N92.6 Irregular menstruation. Patient states having irregular m enses TECHNIQUE: Transabdominal (TA). Transabdominal sonographic images of the pelvis were acquired. Date of LMP: 12/25/2020, EXAM MEASUREMENTS: Uterus: 9.5 x 5.6 x 5.1 cm Endometrial Stripe: 0.8 cm Right Ovary: 2.6 x 1.9 x 2.0 cm Left Ovary: 3.1 x 2.1 x 1.8 cm 1. Uterus: Anteverted wnl 2. Endometrium: wnl 3. Right Ovary: follicles seen 4. Left Ovary: follicles seen 5. Bilateral Adnexa: wnl 6. Posterior cul-de-sac: no free fluid IMPRESSION: No definite sonographic abnormality of the uterus or ovaries.
== END | disposition home or self-care (01) ==
LOC: RADUSWWP 12:12
PROVIDERS: ATTEND Family Medicine
DX: N92.6 Irregular menstruation, unspecified (principal); N94.6 Dysmenorrhea, unspecified
CPT/HCPCS: 76856

== ENCOUNTER 2022-12-14 02:20 | Emergency (ER) | payer OTHER ==
[2022-12-14 02:49] VITALS: BP 139/98; PULSE 89; RESP 18; TEMP 97.6
--- NOTE | 2022-12-14 03:34 | ED ---
Alcohol HPI - General Chief Complaint: Alcohol Stated Complaint: Drug Test Time Seen by Provider: 12/14/22 02:26 Source: patient, RN notes reviewed Mode of arrival: ambulatory Limitations: no limitations - History of Present Illness Initial Comments: This is a 42-year-old female who presents to the emergency department for alcohol intoxication. 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 Patient declines to be seen by any of the ER providers and strictly requests IHS testing. She has no concerns or complaints at this time. MD Complaint: alcohol intoxication - Related Data Previous Rx's Medication Instructions Recorded Azithromycin [Zithromax] 500 mg PO DAILY 1 Days #2 tab 03/21/19 Albuterol Nebulized [Ventolin 2.5 mg INHALATION Q4H PRN 8 Days 10/12/22 Nebulized] #150 ml Promethazine/Dextromethorphan 5 ml PO Q4-6H PRN #473 ml 10/12/22 [Promethazine-Dm Syrup] predniSONE 50 mg PO DAILY 5 Days #5 tab 10/12/22 Allergies Allergy/AdvReac Type Severity Reaction Status Date / Time Sulfa (Sulfonamide Allergy Unknown Verified 10/31/20 17:56 Antibiotics) Childhood Review of Systems ROS Statement: Those systems with pertinent positive or pertinent negative responses have been documented in the HPI. ROS Other: All systems not noted in ROS Statement are negative. Past Medical History Past Medical History: No Reported History Additional Past Medical History / Comment(s): MS, but does not take medication for it per patient, ETOH abuse History of Any Multi-Drug Resistant Organisms: None Reported Past Surgical History: No Surgical Hx Reported Past Psychological History: No Psychological Hx Reported Smoking Status: Never smoker Past Alcohol Use History: Abuse, Daily, Heavy Past Drug Use History: None Reported, Marijuana General Exam Limitations: no limitations Course Vital Signs 12/14/22 02:45 Temperature 97.6 F Pulse Rate 89 Respiratory 18 Rate Blood Pressure 139/98 O2 Sat by Pulse 97 Oximetry Medical Decision Making - Medical Decision Making As listed above, patient declines to be seen by any of the emergency department providers and thus physical examination was not performed. IHS testing with breath alcohol test and urine drug screen obtained per requirements. BAT was 0.14. Patient discharged into the care of her forest supervisor and union rep. Disposition Clinical Impression: Alcoholic intoxication Disposition: HOME SELF-CARE Is patient prescribed a controlled substance at d/c from ED?: No Referrals: Magda Baker NPC [Primary Care Provider] - 1-2 days
== END 2022-12-14 03:13 | disposition home or self-care (01) ==
LOC: EC 02:20
DX: F10.129 Alcohol abuse with intoxication, unspecified (principal); E11.9 Type 2 diabetes mellitus without complications; Z88.1 Allergy status to other antibiotic agents; Z88.2 Allergy status to sulfonamides
CPT/HCPCS: 99283

== ENCOUNTER 2023-02-17 08:34 | Observation (INO) | payer OTHER ==
[2023-02-17] MEDS ORDERED: SODIUM CHLORIDE 0.9% 1,000 ML IV STA (09:03)
[2023-02-17] MEDS ORDERED: THIAMINE 100 MG/ML 2 ML VIAL IM STA (09:04)
--- NOTE | 2023-02-17 09:15 | ED ---
General Adult HPI - General Chief complaint: Weakness Stated complaint: Unable able to walk, legs feeling like jello Time Seen by Provider: 02/17/23 08:41 Source: patient, RN notes reviewed, old records reviewed Mode of arrival: ambulatory Limitations: no limitations - History of Present Illness Initial comments: 42 -year-old female presenting for evaluation of bilateral leg weakness which has been progressive over the past 3 days. She has a remote history of MS but has not required any treatment for the past 20 years. She states that she noticed that her legs felt weak and she had some difficulty ambulating which began 3 days ago this has progressed. She also reports some pain in the anterior portion of both of her thighs. She denies fever. Denies headache. Denies low back pain. - Related Data Home Medications Medication Instructions Recorded Confirmed No Known Home Medications 02/17/23 02/17/23 Allergies Allergy/AdvReac Type Severity Reaction Status Date / Time Sulfa (Sulfonamide Allergy Unknown Verified 02/17/23 10:53 Antibiotics) Childhood Review of Systems ROS Statement: Those systems with pertinent positive or pertinent negative responses have been documented in the HPI. ROS Other: All systems not noted in ROS Statement are negative. Past Medical History Past Medical History: No Reported History Additional Past Medical History / Comment(s): MS, but does not take medication for it per patient, ETOH abuse History of Any Multi-Drug Resistant Organisms: None Reported Past Surgical History: No Surgical Hx Reported Past Psychological History: No Psychological Hx Reported Smoking Status: Never smoker Past Alcohol Use History: Abuse, Daily, Heavy Past Drug Use History: None Reported, Marijuana General Exam Limitations: no limitations General appearance: alert, in no apparent distress Head exam: Present: atraumatic, normocephalic Eye exam: Present: normal appearance, PERRL ENT exam: Present: normal exam Neck exam: Present: normal inspection. Absent: tenderness, meningismus Respiratory exam: Present: normal lung sounds bilaterally. Absent: respiratory distress, wheezes Cardiovascular Exam: Present: regular rate, normal rhythm GI/Abdominal exam: Present: soft. Absent: distended, tenderness, guarding Neurological exam: Present: alert, oriented X3, CN II-XII intact, abnormal gait, motor sensory deficit (Bilateral lower extremity weakness and ataxia), other (Normal sensation in bilateral lower extremities). Absent: reflexes normal (Patellar reflexes are hyperreflexive) Psychiatric exam: Present: anxious Skin exam: Present: warm, dry, intact Course Vital Signs 02/17/23 02/17/23 08:40 11:17 Temperature 97.8 F Pulse Rate 109 H 59 L Respiratory 20 18 Rate Blood Pressure 156/92 129/84 O2 Sat by Pulse 100 98 Oximetry - Reevaluation(s) Reevaluation #1: 02/17/23 [id number] neurology has been paged regarding consultation. Medical Decision Making - Medical Decision Making Was pt. sent in by a medical professional or institution (, PA, CLINICAL NURSING DIRECTOR, urgent care, hospital, or senior living...) When possible be specific @ -No Did you speak to anyone other than the patient for history (EMS, parent, family, police, friend...)? What history was obtained from this source @ -No Did you review nursing and triage notes (agree or disagree)? Why? @ -I reviewed and agree with nursing and triage notes Were old charts reviewed (outside hosp., previous admission, EMS record, old EKG, old radiological studies, urgent care reports/EKG's, senior living records)? Report findings @ -No old charts were reviewed Differential Diagnosis (chest pain, altered mental status, abdominal pain women, abdominal pain men, vaginal bleeding, weakness, fever, dyspnea, syncope, headache, dizziness, GI bleed, back pain, seizure, CVA, palpatations, mental health, musculoskeletal)? @ -Differential Weakness: Hypoglycemia, shock, sepsis, hyponatremia, anemia, infection, AL, ETOH, adverse medicine reaction, overdose, stroke, GBS, MS this is not meant to be an all- inclusive list. EKG interpreted by me (3pts min.). @ -EKG: Sinus rhythm rate of 77, VT interval 141, QRS duration 98, QTC [address] segment elevation. X-rays interpreted by me (1pt min.). @ -No acute cardiopulmonary findings CT interpreted by me (1pt min.). @ -To the brain negative for intracranial hemorrhage or mass effect U/S interpreted by me (1pt. min.). @ -None done What testing was considered but not performed or refused? (CT, X-rays, U/S, labs)? Why? @ -None What meds were considered but not given or refused? Why? @ -None Did you discuss the management of the patient with other professionals (professionals i.e. , PA, CLINICAL NURSING DIRECTOR, lab, RT, psych nurse, healthcare social worker, rail filler, teacher, community service officer, residential case manager)? Give summary @ -Dr. Reardon Was smoking cessation discussed for >3mins.? @ -No Was critical care preformed (if so, how long)? @ -No Were there social determinants of health that impacted care today? How? (Homelessness, low income, unemployed, alcoholism, drug addiction, transportation, low edu. Level, literacy, decrease access to med. care, senior care, rehab)? @ -No Was there de-escalation of care discussed even if they declined (Discuss DNR or withdrawal of care, Hospice)? DNR status @ -No What co-morbidities impacted this encounter? (DM, HTN, Smoking, COPD, CAD, Cancer, CVA, ARF, Chemo, Hep., AIDS, mental health diagnosis, sleep apnea, morbid obesity)? @ -History of MS Was patient admitted / discharged? Hospital course, mention meds given and route, prescriptions, significant lab abnormalities, going to OR and other pertinent info. @ -42-year-old female with progressive lower extremity weakness over the past 3 days. This bilateral. There is a significant gait ataxia on exam. She has 5 out of 5 in proximal strength in the lower extremities. Sensation appears to be intact. She has hyperreflexive patellar tendon reflexes. No symptoms in the upper extremities. Head CT is negative for acute findings. Lumbar spine shows degenerative changes. Patient has normal CBC, normal CMP. She started on high- dose steroids and will be admitted for neurology consultation. Undiagnosed new problem with uncertain prognosis? @ -No Drug Therapy requiring intensive monitoring for toxicity (Heparin, Nitro, Insulin, Cardizem)? @ -No Were any procedures done? @ -No Diagnosis/symptom? @ -[Bilateral lower extremity weakness and ataxia Acute, or Chronic, or Acute on Chronic? @Acute Uncomplicated (without systemic symptoms) or Complicated (systemic symptoms)? @ -complicated Side effects of treatment? @ -No Exacerbation, Progression, or Severe Exacerbation? @ -No Poses a threat to life or bodily function? How? (Chest pain, USA, AL, pneumonia, PE, COPD, DKA, ARF, appy, cholecystitis, CVA, Diverticulitis, Homicidal, Suicidal, threat to staff... and all critical care pts) @ -[Moderate risk, progressive weakness - Lab Data Result diagrams: 02/17/23 09:06 02/17/23 09:06 Lab Results 02/17/23 02/17/23 02/17/23 Range/Units 09:06 09:06 09:06 WBC 8.7 (3.8-10.6) k/uL RBC 3.65 L (3.80-5.40) m/uL Hgb 13.2 (11.4-16.0) gm/dL Hct 38.6 (34.0-46.0) % MCV 105.8 H (80.0-100.0) fL MCH 36.2 H (25.0-35.0) pg MCHC 34.2 (31.0-37.0) g/dL RDW 14.6 (11.5-15.5) % Plt Count 255 (150-450) k/uL MPV 8.4 Neutrophils % 69 % Lymphocytes % 19 % Monocytes % 7 % Eosinophils % 3 % Basophils % 0 % Neutrophils # 6.0 (1.3-7.7) k/uL Lymphocytes # 1.7 (1.0-4.8) k/uL Monocytes # 0.6 (0-1.0) k/uL Eosinophils # 0.3 (0-0.7) k/uL Basophils # 0.0 (0-0.2) k/uL Macrocytosis Moderate PT 9.6 (9.0-12.0) sec INR 0.9 (<1.2) APTT 25.7 (22.0-30.0) sec Sodium (137-145) mmol/L Potassium (3.5-5.1) mmol/L Chloride (98-107) mmol/L Carbon Dioxide (22-30) mmol/L Anion Gap mmol/L BUN (7-17) mg/dL Creatinine (0.52-1.04) mg/dL Est GFR (CKD-EPI)AfAm (>60 ml/min/1.73 sqM) Est GFR (CKD-EPI)NonAf (>60 ml/min/1.73 sqM) Glucose (74-99) mg/dL Plasma Lactic Acid Nathan (0.7-2.0) mmol/L Calcium (8.4-10.2) mg/dL Magnesium (1.6-2.3) mg/dL Total Bilirubin (0.2-1.3) mg/dL AST (14-36) U/L ALT (4-34) U/L Alkaline Phosphatase (38-126) U/L Troponin I (0.000-0.034) ng/mL Total Protein (6.3-8.2) g/dL Albumin (3.5-5.0) g/dL TSH (0.465-4.680) mIU/L Urine Color Light Yellow Urine Appearance Turbid H (Clear) Urine pH 7.5 (5.0-8.0) Ur Specific Linden 1.011 (1.001-1.035) Urine Protein Negative (Negative) Urine Glucose (UA) Negative (Negative) Urine Ketones Negative (Negative) Urine Blood Negative (Negative) Urine Nitrite Negative (Negative) Urine Bilirubin Negative (Negative) Urine Urobilinogen <2.0 (<2.0) mg/dL Ur Leukocyte Esterase Negative (Negative) Urine RBC 2 (0-5) /hpf Urine WBC 1 (0-5) /hpf Ur Squamous Epith Cells 2 (0-4) /hpf Amorphous Sediment Moderate H (None) /hpf Urine Bacteria Occasional H (None) /hpf Urine Mucus Rare H (None) /hpf 02/17/23 02/17/23 02/17/23 Range/Units 09:06 09:06 09:06 WBC (3.8-10.6) k/uL RBC (3.80-5.40) m/uL Hgb (11.4-16.0) gm/dL Hct (34.0-46.0) % MCV (80.0-100.0) fL MCH (25.0-35.0) pg MCHC (31.0-37.0) g/dL RDW (11.5-15.5) % Plt Count (150-450) k/uL MPV Neutrophils % % Lymphocytes % % Monocytes % % Eosinophils % % Basophils % % Neutrophils # (1.3-7.7) k/uL Lymphocytes # (1.0-4.8) k/uL Monocytes # (0-1.0) k/uL Eosinophils # (0-0.7) k/uL Basophils # (0-0.2) k/uL Macrocytosis PT (9.0-12.0) sec INR (<1.2) APTT (22.0-30.0) sec Sodium 137 (137-145) mmol/L Potassium 3.7 (3.5-5.1) mmol/L Chloride 106 (98-107) mmol/L Carbon Dioxide 26 (22-30) mmol/L Anion Gap 5 mmol/L BUN 8 (7-17) mg/dL Creatinine 0.57 (0.52-1.04) mg/dL Est GFR (CKD-EPI)AfAm >90 (>60 ml/min/1.73 sqM) Est GFR (CKD-EPI)NonAf >90 (>60 ml/min/1.73 sqM) Glucose 92 (74-99) mg/dL Plasma Lactic Acid Nathan 0.8 (0.7-2.0) mmol/L Calcium 8.7 (8.4-10.2) mg/dL Magnesium 2.0 (1.6-2.3) mg/dL Total Bilirubin 0.4 (0.2-1.3) mg/dL AST 20 (14-36) U/L ALT 13 (4-34) U/L Alkaline Phosphatase 87 (38-126) U/L Troponin I <0.012 (0.000-0.034) ng/mL Total Protein 6.9 (6.3-8.2) g/dL Albumin 3.8 (3.5-5.0) g/dL TSH 1.670 (0.465-4.680) mIU/L Urine Color Urine Appearance (Clear) Urine pH (5.0-8.0) Ur Specific Linden (1.001-1.035) Urine Protein (Negative) Urine Glucose (UA) (Negative) Urine Ketones (Negative) Urine Blood (Negative) Urine Nitrite (Negative) Urine Bilirubin (Negative) Urine Urobilinogen (<2.0) mg/dL Ur Leukocyte Esterase (Negative) Urine RBC (0-5) /hpf Urine WBC (0-5) /hpf Ur Squamous Epith Cells (0-4) /hpf Amorphous Sediment (None) /hpf Urine Bacteria (None) /hpf Urine Mucus (None) /hpf Disposition Clinical Impression: Lower extremity weakness Disposition: ADMITTED IP TO THIS [facility] Condition: Stable Is patient prescribed a controlled substance at d/c from ED?: No Time of Disposition: 10:25
[2023-02-17 09:41] LABS: Basophils % (A) 0 %; Eosinophils # (A) 0.3 k/uL (0-0.7); Eosinophils % (A) 3 %; HCT 38.6 % (34.0-46.0); HGB 13.2 gm/dL (11.4-16.0); Lymphocytes # (A) 1.7 k/uL (1.0-4.8); Lymphocytes % (A) 19 %; MCH 36.2 pg (25.0-35.0); MCHC 34.2 g/dL (31.0-37.0); MCV 105.8 fL (80.0-100.0); Macrocytosis Moderate; Mean Platelet Volume 8.4; Monocytes # (A) 0.6 k/uL (0-1.0); Monocytes % (A) 7 %; Neutrophils % (A) 69 %; Platelet Count 255 k/uL (150-450); RBC 3.65 m/uL (3.80-5.40); RDW 14.6 % (11.5-15.5); WBC 8.7 k/uL (3.8-10.6)
[2023-02-17 09:48] LABS: INR 0.9 (<1.2); Partial Thromboplastin Time 25.7 sec (22.0-30.0); Prothrombin Time 9.6 sec (9.0-12.0)
[2023-02-17 09:58] LABS: ALT 13 U/L (4-34); AST 20 U/L (14-36); African American GFR (CKD) >90 (>60 ml/min/1.73 sqM); Albumin 3.8 g/dL (3.5-5.0); Alkaline Phosphatase 87 U/L (38-126); Anion Gap 5 mmol/L; Blood Urea Nitrogen 8 mg/dL (7-17); Calcium 8.7 mg/dL (8.4-10.2); Carbon Dioxide 26 mmol/L (22-30); Chloride 106 mmol/L (98-107); Glucose 92 mg/dL (74-99); Non-African American GFR(CKD) >90 (>60 ml/min/1.73 sqM); Potassium 3.7 mmol/L (3.5-5.1); Sodium 137 mmol/L (137-145); Total Bilirubin 0.4 mg/dL (0.2-1.3); Total Protein 6.9 g/dL (6.3-8.2)
--- NOTE | 2023-02-17 09:59 | CT ---
EXAMINATION TYPE: CT brain wo con DATE OF EXAM: 02/17/2023 COMPARISON: 02/11/2019 HISTORY: 42-year-old female Weakness TECHNIQUE: Examination was done in axial plane without intravenous contrast. Coronal and sagittal r econstructions performed. CT DLP: 1129.4 mGycm Automated exposure control for dose reduction was used. FINDINGS: There is no evidence of acute intracranial hemorrhage, acute ischemic changes, mass, mass-effect, or extra-axial fluid collection. There is no effacement of cerebral sulci or basal subarachnoid cister ns. There is no hydrocephalus. There is no midline shift. Tsang-white matter distinction is preserv ed. Mild white matter hypodensity in the right periventricular region appears to have been present in 201 9 as well. There is moderate mucosal thickening left ethmoid air cells and bilateral sphenoid sinuses. Mastoid a ir cells well pneumatized. Orbits and globes are intact. IMPRESSION: 1. No acute intracranial abnormality seen. 2. Mild periventricular white matter change on the right appears similar to 2019 and may relate to th e reported history of MS. 3. 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
--- NOTE | 2023-02-17 10:04 | CT ---
EXAMINATION TYPE: CT lumbar spine wo con DATE OF EXAM: 02/17/2023 COMPARISON: None HISTORY: 42-year-old female Gait instability, weakness TECHNIQUE: Contiguous axial scanning of the lumbar spine without IV contrast. Coronal and sagittal re constructions performed. CT DLP: 573.1 mGycm Automated exposure control for dose reduction was used. FINDINGS: There is moderate discogenic degenerative change at L5-S1 with narrowed, bulging, desiccated disc. Po sterior disc protrusion impresses on the ventral thecal sac but does not contribute to any significan t spinal canal stenosis. There is some associated sclerotic endplate change towards the right. We do note a slight dextroconvex curvature of the lumbar spine which likely accounts for this finding . Additional mild disc bulging is present at L3-L4 and L4-L5, again, without significant spinal canal s tenosis. On the left, the bulging discs contributing to mild neural foraminal narrowing at L3-L4 and L4-L5. On the right, the changes contribute to mild neural foraminal narrowing at L3-L4 and L4-L5. More ramses re narrowing at L5-S1. Vertebral body heights are preserved and alignment is maintained. No prevertebral or paravertebral so ft tissue abnormality. IMPRESSION: 1. SLIGHT DEXTROCONVEX CURVATURE OF THE LUMBAR SPINE. THE RIGHT L5-S1 level corresponds to the site o f secondary concavity and there is associated severe disc/endplate degenerative change here towards t he right. Spur disc complex and facet arthropathy here contribute to a severe right-sided neuroforami nal stenosis. 2. Bulging disks impressing on the ventral thecal sac from L3 through S1 levels without significant s car canal stenosis. 3. Additional variable mild neuroforaminal narrowing in the mid to lower lumbar spine as mentioned ab ove.
--- NOTE | 2023-02-17 10:09 | XR ---
EXAMINATION TYPE: XR chest 2V DATE OF EXAM: 02/17/2023 COMPARISON: 02/12/2019 TECHNIQUE: PA and lateral views submitted. HISTORY: Weakness FINDINGS: The lungs are clear and there is no pneumothorax, pleural effusion, or focal pneumonia. Heart size normal and no overt failure. Osseous structures demonstrate hypertrophic and degenerative changes of the spine. Biapical pleural thickening. Hyperinflation of the lungs. Correlate for COPD Chest. IMPRESSION: 1. No acute process.
[2023-02-17] MEDS ORDERED: methylPREDNISolone SOD SUCCIN 250 MG in SODIUM CHLORIDE 0.9% 100 ML IVPB STA ×2 (10:11→13:02)
[2023-02-17] MEDS ORDERED: ACETAMINOPHEN TAB 325 MG TAB PO PRN (10:19)
[2023-02-17] MEDS ORDERED: NALOXONE 0.4 MG/ML 1 ML VIAL IV PRN (10:19)
[2023-02-17 10:34] LABS: Amorphous Sediment,Urine Moderate /hpf; Appearance,Urine Turbid (Clear); Bacteria,Urine Occasional /hpf; Bilirubin,Urine Negative (Negative); Blood,Urine Negative (Negative); Color,Urine Light Yellow; Glucose,Urine (UA) Negative (Negative); Ketones,Urine Negative (Negative); Leukocyte Esterase,Urine Negative (Negative); Mucus,Urine Rare /hpf; Nitrite,Urine Negative (Negative); PH, Urine 7.5 (5.0-8.0); Protein,Urine Negative (Negative); RBC,Urine 2 /hpf (0-5); Specific Gravity,Urine 1.011 (1.001-1.035); Squamous Epithelial Cell,Urine 2 /hpf (0-4); Urobilinogen,Urine <2.0 mg/dL (<2.0); WBC,Urine 1 /hpf (0-5)
[2023-02-17] MEDS ORDERED: ALPRAZolam 0.25 MG TAB PO PRN (11:47)
--- NOTE | 2023-02-17 11:57 | P.HPIM ---
History of Present Illness H&P Date: 02/17/23 Chief Complaint: Lower extremity weakness This is a 42-year-old female patient of Dr. Keys who presented with concerns of increased lower extremity weakness that has been progressing over the past few days. Patient also reports increased fatigue noted over the past few mo nths. Patient has a past medical history of MS in which she states she was diagnosed at 17 but has not required any further treatments since initial diagnosis. Patient also is a current every day smoker. Head CT completed showing no acute intracranial abnormality seen. 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 Lumbar spine x-ray completed showing slight dextroconvex curvature of lumbar spine. Right L5-S1 level corresponds to the site of a secondary contact with severe discogenic endplate degenerative change towards the right bulging disc impressing on the ventricle sac from L3 to S1. At this time patient will be admitted started on IV Solu-Medrol. Neurology orthopedic service is consulted. Repeat labs ordered for a.m. Review of Systems Please refer to HPI otherwise unremarkable Past Medical History Past Medical History: No Reported History Additional Past Medical History / Comment(s): MS, but does not take medication for it per patient, ETOH abuse History of Any Multi-Drug Resistant Organisms: None Reported Past Surgical History: No Surgical Hx Reported Past Psychological History: No Psychological Hx Reported Smoking Status: Never smoker Past Alcohol Use History: Abuse, Daily, Heavy Past Drug Use History: None Reported, Marijuana Medications and Allergies Home Medications Medication Instructions Recorded Confirmed Type No Known Home Medications 02/17/23 02/17/23 History Allergies Allergy/AdvReac Type Severity Reaction Status Date / Time Sulfa (Sulfonamide Allergy Unknown Verified 02/17/23 10:53 Antibiotics) Childhood Physical Exam Vitals: Vital Signs Temp Pulse Pulse Resp BP BP Pulse Ox 02/17/23 11:39 98.1 F 63 17 141/90 99 02/17/23 11:17 59 L 18 129/84 98 02/17/23 08:40 97.8 F 109 H 20 156/92 100 Intake and Output 02/16/23 02/17/23 02/17/23 22:59 06:59 14:59 Other: Weight 56.699 kg Head normocephalic Neck supple Lungs clear to auscultation bilaterally no wheezing or crackles Heart regular rate and rhythm S1-S2, no rub or gallop Abdomen is soft nontender nondistended positive bowel sounds no hepatosplenomegaly Extremities no edema Neuro alert and orientated to 3 Results CBC & Chem 7: 02/17/23 09:06 02/17/23 09:06 Labs: Abnormal Lab Results - Last 24 Hours (Table) 02/17/23 02/17/23 Range/Units 09:06 09:06 RBC 3.65 L (3.80-5.40) m/uL MCV 105.8 H (80.0-100.0) fL MCH 36.2 H (25.0-35.0) pg Urine Appearance Turbid H (Clear) Amorphous Sediment Moderate H (None) /hpf Urine Bacteria Occasional H (None) /hpf Urine Mucus Rare H (None) /hpf Assessment and Plan Assessment: 1. Lower extremity weakness 3. History of multiple sclerosis diagnosed at [address] lumbar spine. Dr. Jackson consulted. 5. Nicotine dependence. Patient declined nicotine patch at this time DVT prophylaxis Lovenox. GI prophylaxis Protonix Neurology and orthopedic services Repeat labs ordered Patient started on IV Solu-Medrol Time with Patient: Greater than 30 (Greater than 60% of the total time spent in counseling and coordination of care)
--- NOTE | 2023-02-17 13:18 | P.CNNES ---
History of Present Illness Consult date: 02/17/23 Requesting physician: Nikolas García Reason for Consult: bilateral lower extremity weakness History of Present Illness: This is a 42-year-old woman with history of multiple sclerosis since age of 17 is not on any medication for it and has not followed up with a neurologist, history of stroke also at the age of 17 without any residual symptoms presented to the emergency department because of unsteady gait. Patient stated that the this has been going on for the past 3 days in which she noticed her bilateral thighs was "hurting" then about 2 days ago she felt the her legs felt like Jell- O and she fell yesterday got worse so as a result she discharged from the hospital. She has minimal lower back pain without any radiation. She denies of any upper extremity weakness or any symptoms in the upper extremity as well as the face. Denies of any difficulty swallowing. Denies any visual disturbance. Denies any fever or any recent infection. She does smoke about a pack a day and been smoking for years. She states that that she drinks alcohol socially. Denies any illicit drug use. She does use marijuana. Of note she stated that the age of 17 she was on control pulled and she developed her seizure over left side and the she was told she had a stroke and was told to call per was a typical control pill. Then she saw a neurologist as an outpatient and that he did further workup and she had MRI the brain, cervical spine, she had a lumbar puncture and was determined she had the an addition multiple sclerosis but she stated that her symptoms has improved and resolved and as a result she has not followed up with a neurologist since then and has not been on any disease modifying therapy for MS since not followed up. Review of Systems Review of system: The 12 point system was reviewed and apparent positive and negative per HPI. Past Medical History Past Medical History: No Reported History Additional Past Medical History / Comment(s): MS, but does not take medication for it per patient, ETOH abuse History of Any Multi-Drug Resistant Organisms: None Reported Past Surgical History: No Surgical Hx Reported Past Psychological History: No Psychological Hx Reported Smoking Status: Never smoker Past Alcohol Use History: Abuse, Daily, Heavy Past Drug Use History: None Reported, Marijuana Medications and Allergies Home Medications Medication Instructions Recorded Confirmed Type No Known Home Medications 02/17/23 02/17/23 History Allergies Allergy/AdvReac Type Severity Reaction Status Date / Time Sulfa (Sulfonamide Allergy Unknown Verified 02/17/23 10:53 Antibiotics) Childhood Physical Examination - Vital Signs Vital Signs: Vital Signs Temp Pulse Pulse Resp BP BP Pulse Ox 02/17/23 11:39 98.1 F 63 17 141/90 99 02/17/23 11:17 59 L 18 129/84 98 02/17/23 08:40 97.8 F 109 H 20 156/92 100 Intake and Output 02/16/23 02/17/23 02/17/23 22:59 06:59 14:59 Other: Weight 56.699 kg GENERAL: The patient is lying in bed and is not in acute distress. NEUROLOGICAL: Higher mental function: The patient is awake, alert, oriented to self, place and time. Patient is following commands. No aphasia and no neglect. Cranial nerves: The pupils are round, equal and reactive to light and accommodation. Visual jaime are full to confrontation throughout. Extraocular movement is intact no nystagmus is noted. Facial sensation is normal to touch throughout. The facial strength is normal throughout. Hearing is normal bilaterally to hand rub. Tongue is midline and moved [id number] without any difficulty. No dysarthria is noted. Shoulder shrug is normal bilaterally. Motor: Gait: While assessing for the gait was accompanied with the nurse and the patient stated that the she does not need supervision for the gait and she will not fall. She was showing a lot of resistance upon assessing the gait. She was walking on her own and did not appear any singificant abnormality. The strength is 5 over 5 throughout. Of note upon assessing lower extremities patient stated that she is not weak in the lowers. Normal tone and bulk. Cerebellum: Normal finger to nose heel to gleason bilaterally. Sensation: Sensation is normal to touch throughout. Reflexes (right/left): Biceps 2+/3+, triceps 2+/2+; brachioradialis 2+/2-3+; patellar2-3+/3+; ankles 2+. Plantars are downgoing bilaterally. Results - Laboratory Findings CBC and BMP: 02/17/23 09:06 02/17/23 09:06 Abnormal Lab Findings: Abnormal Labs 02/17/23 02/17/23 09:06 09:06 RBC 3.65 L MCV 105.8 H MCH 36.2 H Urine Appearance Turbid H Amorphous Sediment Moderate H Urine Bacteria Occasional H Urine Mucus Rare H Assessment and Plan Assessment: This is a 42-year-old woman with history of multiple sclerosis at the age of 17 is not followed up with a neurologist and been on disease modifying therapy, stroke since the age of 17 and she had paresthesia over the left side that resolved who presented emergency department because of the gait disturbance that started about 3 days ago and she stated she initially had the pain in her thighs then she felt her legs were like Jell-O the progressively got worse. Probable multiple sclerosis exacerbation. On examination patient is showing a lot of resistance examining her lower extremities as well as the gait. There is no focal weakness in the lower extremities. With a gait she was able to walk on her own without any issues. History of multiple sclerosis since age of 17 and had workup of MRI the brain and cervical spine as well as lumbar puncture and she stated that that was confirmed for MS and has not followed up with a neurologist since the age of 17 or been on disease modifying therapies since she felt she was stable History of reported stroke at the age of 17 and she was on control pill and she had paresthesia over the left side that has resolved Tobacco use Plan: In the ED she was given 250 mg IV Solu-Medrol. I given additional 250mg once the start her on the IV Solu-Medrol 500 mg twice a day for 3-5 days. Recommend glucose control and we'll defer the management to the primary team I ordered MRI of the brain and cervical spine with and without to rule out of any acute lesion. I ordered the CK level, vitamin B12, folate, urine drug screen. Consulted PT and OT Per nurse she stated that she has history of alcohol use in the past as documented her urine drug screen was less than 10. Are me she stated that the she drinks alcohol socially. He was given thiamine 100 mg once in the ED. We'll defer the rest of the medical management the primary team For GI prophylaxis patient is on Protonix. Upon discharge the patient needs to follow-up with a neurologist within 1-2 weeks. Recommend the patient needs to be on disease modifying therapy and will defer drug of choice to her outpatient neurologist. The plan was discussed with the patient and her nurse was at bedside Thank you for consultation Time with Patient: Greater than 30
--- NOTE | 2023-02-17 14:47 | P.CNOR ---
History of Present Illness - [facility] Consult date: 02/17/23 Requesting physician: Sarah Reardon Consult reason: other (Lower extremity weakness) History of present illness: Patient is a very pleasant 42-year-old female who is seen and examined the bedside for further evaluation of her lower extremities. She states that 3 days ago she started having some numbness and tingling this started at her feet and radiating up her lower extremities. She states that the second day it was just over her thighs. She states her legs feel like jelly when trying to ambulate. She feels like her legs will not coordinate to do the things she once then to do. She states she ambulates like she is drunk but has not been consuming alcohol. She denies any injuries. She states she has an achy sensation currently over her anterior thighs only during ambulation. She denies a specific radicular pattern in the lower extremities. She denies a specific lower extremity weakness. She states her legs will feel generally weak like they will give out on her. She is not experiencing significant back pain. She has a significant history which includes multiple sclerosis diagnosed at 17. She also has a history of previous stroke. She states she is not on any medication for multiple sclerosis and has not followed with neurology recently. She has been seen by neurology during her admission to the hospital. They feel her symptoms are in relation to exacerbation of multiple sclerosis. MRI imaging of the brain cervical spine has been ordered but not yet performed. Scheduled for tomorrow. She states she normally works 12 hour shifts per day without significant difficulty to the exacerbation of her symptoms. She does smoke approximately 1 pack per day and has been for years. She states at the bedside she does not feel her symptoms are in regards to her lumbar spine and does not wish to have further treatment, evaluation, or imaging regards to her lumbar spine. Patient states she does not need our service. Patient would be willing to be seen in the outpatient setting. CT imaging of her lumbar spine has been performed. Past Medical History Past Medical History: No Reported History Additional Past Medical History / Comment(s): MS, but does not take medication for it per patient, ETOH abuse History of Any Multi-Drug Resistant Organisms: None Reported Past Surgical History: No Surgical Hx Reported Past Psychological History: No Psychological Hx Reported Smoking Status: Never smoker Past Alcohol Use History: Abuse, Daily, Heavy Past Drug Use History: None Reported, Marijuana Medications and Allergies Home Medications Medication Instructions Recorded Confirmed Type No Known Home Medications 02/17/23 02/17/23 History Allergies Allergy/AdvReac Type Severity Reaction Status Date / Time Sulfa (Sulfonamide Allergy Unknown Verified 02/17/23 10:53 Antibiotics) Childhood Physical Examination Physical exam: Patient is awake, alert, and oriented 3 Vital signs stable Good chest excursion with deep inspiration and expiration Examination of lumbar spine reveals skin is intact with no abrasions, lacerations, or bruises; no erythema, purulence or signs of infection Dorsiflexion, plantarflexion, and extensor hallucis longus positive sustained bilaterally Lower extremity strength 5/5 bilaterally Patellar reflex 2+ bilaterally No lower extremity hyperreflexia bilaterally Straight leg test negative bilateral lower extremities Negative Lasegue's test bilaterally No signs or symptoms of DVT; no calf pain No pain with internal and external rotation of the hips bilaterally Patient is able to perform active range of motion of her bilateral lower extremities independently without difficulty Neurovascularly intact There may be evidence of positive beats of clonus in the bilateral lower extremities greater than the left than the right Results Pertinent studies: CT lumbar spine taken on 02/17/2023: No evidence of vertebral body compression fracture; no obvious significant stenosis throughout the lumbar spine; slight degenerative scoliosis; L5-S1 degenerative disc disease with endplate change and facet arthropathy with right neural foraminal stenosis/narrowing - Labs Labs: Abnormal Lab Results - Last 24 Hours (Table) 02/17/23 02/17/23 Range/Units 09:06 09:06 RBC 3.65 L (3.80-5.40) m/uL MCV 105.8 H (80.0-100.0) fL MCH 36.2 H (25.0-35.0) pg Urine Appearance Turbid H (Clear) Amorphous Sediment Moderate H (None) /hpf Urine Bacteria Occasional H (None) /hpf Urine Mucus Rare H (None) /hpf H & H 02/17/23 Range/Units 09:06 Hgb 13.2 (11.4-16.0) gm/dL Hct 38.6 (34.0-46.0) % Coagulation 02/17/23 Range/Units 09:06 INR 0.9 (<1.2) Result Diagrams: 02/17/23 09:06 02/17/23 09:06 Assessment and Plan Assessment: Assessment: Unsteady gait over the past 3 days Descending lower extremity numbness and tingling, improved Ache sensation over the anterior thighs Generalized weakness with ambulation bilateral lower extremities over the past 3 days Degenerative scoliosis L5-S1 degenerative disc disease L5-S1 facet arthropathy History of multiple sclerosis History of stroke Current one pack per day every day smoker (1) Multiple sclerosis Current Visit: Yes Status: Acute Code(s): G35 - MULTIPLE SCLEROSIS SNOMED Code(s): 42861939 (2) History of stroke Current Visit: Yes Status: Acute Code(s): Z86.73 - PRSNL HX OF TIA (TIA), AND CEREB INFRC W/O RESID DEFICITS SNOMED Code(s): 785339742 (3) Lumbosacral disc herniation Current Visit: Yes Status: Acute Code(s): M51.27 - OTHER INTERVERTEBRAL DISC DISPLACEMENT, LUMBOSACRAL REGION SNOMED Code(s): 978329701 (4) Facet arthropathy, lumbosacral Current Visit: Yes Status: Acute Code(s): M47.817 - SPONDYLS W/O MYELOPATHY OR RADICULOPATHY, LUMBOSACR REGION SNOMED Code(s): 607687396 (5) Current every day smoker Current Visit: Yes Status: Acute Code(s): F17.200 - NICOTINE DEPENDENCE, UNSPECIFIED, UNCOMPLICATED SNOMED Code(s): 653044077 (6) Lower extremity weakness Current Visit: Yes Status: Acute Code(s): R29.898 - OTH SYMPTOMS AND SIGNS INVOLVING THE MUSCULOSKELETAL SYSTEM SNOMED Code(s): 602392216 Plan: Plan: 1. After further evaluation of the patient, reviewing imaging, and further discussion with the patient, will currently planning continue conservative treatment regards to her lumbar spine. Patient has been having difficulty with her lower extremities during ambulation over the past 3 days. She feels unsteady with her gait and generally weaker in the lower extremities with an ache sensation over her anterior thighs. She denies a specific lower extremity weakness or radiculopathy bilaterally. She is not experiencing any significant low back pain. Patient has a significant medical history which includes multiple sclerosis diagnosed at age 17. She has a history of stroke. She has been seen and examined by neurology who has ordered brain and cervical MRI imaging for further evaluation. Neurology feels her symptoms may be stemming from multiple sclerosis exacerbation. Patient states she feels her symptoms could be in relation to multiple sclerosis as well and does not wish to have further treatment, evaluation, or imaging in regards to her lumbar spine. She strongly feels her symptoms are not specifically related to her lumbar spine until she does not need our service during her admission. At this time, patient will be cleared for discharge from an orthopedic spine standpoint. She may follow-up in the outpatient setting in approximately 3 weeks for further evaluation. If her symptoms are improving, she may cancel her scheduled follow-up appointment. 2. Patient will continue be seen and examined by medicine and neurology; patient will proceed forward with brain and cervical MRI imaging as ordered by neurology Time with Patient: Greater than 30 (Including obtaining history, physical examination, reviewing of imaging, and dictation.)
[2023-02-17 16:48] LABS: Amphetamine Screen,Urine Not Detected (NotDetected); Benzodiazepines Screen,Urine Not Detected (NotDetected); Cocaine Screen,Urine Not Detected (NotDetected); Opiate Screen,Urine Not Detected (NotDetected); Phencyclidine Screen,Urine Not Detected (NotDetected); Tricyclic Antidepressant,Urine Not Detected (NotDetected); Urn Cannabinoid Scrn Detected (NotDetected)
[2023-02-17 16:49] LABS: Barbiturate Screen,Urine Not Detected (NotDetected); Methadone Screen, Urine Not Detected (NotDetected); Oxycodone Screen, Urine Not Detected (NotDetected)
[2023-02-17] MEDS ORDERED: methylPREDNISolone SOD SUCCIN 250 MG in SODIUM CHLORIDE 0.9% 100 ML IVPB SCH (18:00)
[2023-02-17] MEDS: methylPREDNISolone SOD SUCCIN 500 MG in SODIUM CHLORIDE 0.9% 100 ML IVPB SCH (21:58)
[2023-02-18] MEDS: PANTOPRAZOLE 40 MG TABLET PO SCH ×3 (06:47→10:34)
[2023-02-18] MEDS: ENOXAPARIN 40 MG/0.4 ML SYRINGE SQ SCH (08:17)
[2023-02-18] MEDS: methylPREDNISolone SOD SUCCIN 500 MG in SODIUM CHLORIDE 0.9% 100 ML IVPB SCH ×2 (08:18→21:47)
[2023-02-18 13:42] LABS: ALT 12 U/L (8-44); AST 12 U/L (13-35); Albumin 3.6 d/dL (3.8-4.9); Albumin/Globulin Ratio 1.57 Ratio (1.60-3.17); Alkaline Phosphatase 80 U/L (41-126); BUN/Creat Ratio 13.57 Ratio (12.00-20.00); Blood Urea Nitrogen 9.5 mg/dL (9.0-27.0); Calcium 8.8 mg/dL (8.7-10.3); Carbon Dioxide 20.2 mmol/L (21.6-31.8); Chloride 105 mmol/L (96-109); Globulin 2.3 d/dL (1.6-3.3); Glucose 184 mg/dL (70-110); Potassium 4.2 mmol/L (3.5-5.5); Sodium 135 mmol/L (135-145); Total Bilirubin 0.2 mg/dL (0.3-1.2); Total Protein 5.9 d/dL (6.2-8.2)
[2023-02-18 14:23] LABS: HCT 34.3 % (37.2-46.3); HGB 11.8 d/dL (12.0-15.0); MCH 37.3 pg (27.0-32.0); MCHC 34.4 d/dL (32.0-37.0); MCV 108.5 FL (80.0-97.0); Mean Platelet Volume 11.6 FL (9.5-12.2); NRBC Per 100 WBC 0 X 10*3/uL (0.00-0.01); Platelet Count 214 X 10*3/uL (140-440); RBC 3.16 X 10*6/uL (4.10-5.20)
[2023-02-18 15:00] LABS: Basophils # (A) 0.01 X 10*3/uL (0.00-0.10); Basophils % (A) 0.1 %; Eosinophils # (A) 0 X 10*3/uL (0.04-0.35); Eosinophils % (A) 0 %; Lymphocytes # (A) 0.36 X 10*3/uL (0.90-5.00); Lymphocytes % (A) 2.6 %; Monocytes # (A) 0.38 X 10*3/uL (0.20-1.00); Monocytes % (A) 2.8 %; Neutrophils # (A) 12.86 X 10*3/uL (1.80-7.70); Neutrophils % (A) 93.8 %; RBC Morphology Normal (Normal)
--- NOTE | 2023-02-18 18:31 | MR ---
EXAMINATION TYPE: MR brain/cspine wo/w DATE OF EXAM: 02/18/2023 COMPARISON: CT brain 02/17/2023, cervical spine radiograph 08/19/2017 HISTORY: Gait disturbance. Hx of MS TECHNIQUE: Multiplanar, multisequence images of the brain, brainstem and cervical spine is performed without and with IV contrast, utilizing 5.5 mL intravenous Gadavist . FINDINGS: Diffusion weighted images demonstrate no evidence of a recent infarct or other diffusion ab normality. There is no extra-axial fluid collection. Scattered periventricular subcortical white mat ter FLAIR hyperintense signal abnormalities identified. These include the largest within the right fr ontal/parietal lobe junction abutting the right lateral ventricle measuring 1.5 x 0.7 cm (series 1702 , image 20), a subcortical right frontal lobe hyperintense focus measuring 0.3 cm (series 1702, image 25), right occipital lobe 0.6 cm hyperintense focus (series 1702, image 14), left temporal lobe 1.3 cm hyperintense focus (series 1702, image 14), and a left parietal lobe periventricular 5 mm hyperden se focus (series 1702, image 18). These lesions demonstrate postcontrast enhancement. The ventricular system and cisternal spaces are normal in size and appearance. The brain volume is age appropriate. Midline structures demonstrate normal morphology. The craniocervical junction appears within normal limits. The dural venous sinuses appear patent. Mucous retention cysts identified within the left sp henoid and left maxillary sinuses. The globes are intact. Alignment: The cervical vertebral bodies have preserved heights. Alignment is within normal limits gi [id number] patient positioning. Bones: Type II Modic changes involving the inferior endplate of C5 and superior endplate of C6. Cord: The spinal cord is unremarkable with regards to their signal intensity and morphology. No abnor mal contrast enhancement the cervical spine. Discs: Multilevel disc desiccation is present. C2-C3: No significant disc pathology. The spinal canal is patent. No neural foraminal stenosis. C3-C4: No significant disc pathology. The spinal canal is patent. No neural foraminal stenosis. C4-C5: No significant disc pathology. The spinal canal is patent. No neural foraminal stenosis. C5-C6: Eccentric right disc bulge with mild effacement of the anterior thecal sac. Uncovertebral carine nt hypertrophy resulting in moderate right neural foraminal stenosis. The left neural foramen is gonzales nt. C6-C7: No significant disc pathology. The spinal canal is patent. No neural foraminal stenosis. C7-T1: Left paracentral disc protrusion without significant effacement of the anterior thecal sac. N o neural foraminal stenosis. Other: None. IMPRESSION: 1. No evidence for acute/subacute infarct. 2. Few T2/FLAIR hyperintense lesions identified throughout the brain with largest in the right front al/parietal lobe periventricular region measuring up to 1.5 cm. These likely represent a demyelinatin g process from reported multiple sclerosis. None of these lesions demonstrate contrast enhancement to suggest active demyelinating process. 3. No abnormal cervical spinal cord signal or abnormal cervical enhancement. 4. C5-C6 degenerative disc disease including an disc bulge with mild spinal canal stenosis. There is uncovertebral hypertrophy at this level with moderate right neural foraminal stenosis. 5. C7-T1 disc herniation without significant spinal canal stenosis.
[2023-02-19] MEDS: PANTOPRAZOLE 40 MG TABLET PO SCH (06:17)
[2023-02-19 08:10] VITALS: BP 126/77; PULSE 53; RESP 15; TEMP 98.5
[2023-02-19] MEDS ORDERED: methylPREDNISolone SOD SUCCIN 1,000 MG in SODIUM CHLORIDE 0.9% 250 ML IVPB STA (08:10)
[2023-02-19] MEDS ORDERED: FOLIC ACID 1 MG TAB PO SCH (09:00)
[2023-02-19] MEDS ORDERED: CYANOCOBALAMIN 1,000 MCG/ML 1 ML VIAL IM ONE (09:15)
[2023-02-19] MEDS ORDERED: CHOLECALCIFEROL 25 MCG (1000 IU) TABLET PO SCH (09:15)
[2023-02-19] MEDS: ENOXAPARIN 40 MG/0.4 ML SYRINGE SQ SCH (09:34)
--- NOTE | 2023-02-19 10:21 | P.PN ---
Subjective Progress Note Date: 02/18/23 This is a 42-year-old female patient of Dr. Keys who presented with concerns of increased lower extremity weakness that has been progressing over the past few days. Patient also reports increased fatigue noted over the past few months. Patient has a past medical history of MS in which she states she was diagnosed at 17 but has not required any further treatments since initial diagnosis. Patient also is a current every day smoker. Head CT completed showing no acute intracranial abnormality seen. 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 Lumbar spine x-ray completed showing slight dextroconvex curvature of lumbar spine. Right L5-S1 level corresponds to the site of a secondary contact with severe discogenic endplate degenerative change towards the right bulging disc impressing on the ventricle sac from L3 to S1. At this time patient will be admitted started on IV Solu-Medrol. Neurology orthopedic service is consulted. Repeat labs ordered for a.m. On 02/18/2023 patient was seen and examined on the medical floor she is alert and oriented 3 in no apparent distress there is no fever or chills no headache or dizziness no chest pain no shortness of breath no cough no nausea or vomiting no abdominal pain no diarrhea and no urinary symptoms. Patient was started on IV steroids Objective - Vital Signs Vital signs: Vital Signs Temp 98.0 F 02/18/23 13:15 Pulse 68 02/18/23 13:15 Resp 18 02/18/23 13:15 BP 113/70 02/18/23 13:15 Pulse Ox 99 02/18/23 13:15 FiO2 Intake & Output 02/17/23 02/18/23 02/18/23 18:59 06:59 18:59 Weight 56.699 kg Other: Voiding Method Toilet # Voids 1 2 2 - Exam Head normocephalic Neck supple Lungs clear to auscultation bilaterally no wheezing or crackles Heart regular rate and rhythm S1-S2, no rub or gallop Abdomen is soft nontender nondistended positive bowel sounds no hepatosplenomegaly Extremities no edema Neuro alert and orientated to 3 - Labs CBC & Chem 7: 02/18/23 07:24 02/18/23 07:24 Labs: Abnormal Lab Results - Last 24 Hours (Table) 02/17/23 02/17/23 02/18/23 Range/Units 09:04 16:09 07:24 WBC 13.70 H (4.50-10.00) X 10*3/uL RBC 3.16 L (4.10-5.20) X 10*6/uL Hgb 11.8 L (12.0-15.0) d/dL Hct 34.3 L (37.2-46.3) % MCV 108.5 H (80.0-97.0) FL MCH 37.3 H (27.0-32.0) pg Neutrophils # 12.86 H (1.80-7.70) X 10*3/uL Lymphocytes # 0.36 L (0.90-5.00) X 10*3/uL Eosinophils # 0 L (0.04-0.35) X 10*3/uL Carbon Dioxide (21.6-31.8) mmol/L Glucose (70-110) mg/dL Total Bilirubin (0.3-1.2) mg/dL AST (13-35) U/L Total Protein (6.2-8.2) d/dL Albumin (3.8-4.9) d/dL Albumin/Globulin Ratio (1.60-3.17) Ratio Folate 2.40 L (4.40-31.00) ng/mL U Marijuana (THC) Screen Detected H (NotDetected) 02/18/23 Range/Units 07:24 WBC (4.50-10.00) X 10*3/uL RBC (4.10-5.20) X 10*6/uL Hgb (12.0-15.0) d/dL Hct (37.2-46.3) % MCV (80.0-97.0) FL MCH (27.0-32.0) pg Neutrophils # (1.80-7.70) X 10*3/uL Lymphocytes # (0.90-5.00) X 10*3/uL Eosinophils # (0.04-0.35) X 10*3/uL Carbon Dioxide 20.2 L (21.6-31.8) mmol/L Glucose 184 H (70-110) mg/dL Total Bilirubin 0.2 L (0.3-1.2) mg/dL AST 12 L (13-35) U/L Total Protein 5.9 L (6.2-8.2) d/dL Albumin 3.6 L (3.8-4.9) d/dL Albumin/Globulin Ratio 1.57 L (1.60-3.17) Ratio Folate (4.40-31.00) ng/mL U Marijuana (THC) Screen (NotDetected) Assessment and Plan Assessment: 1. Lower extremity weakness 3. History of multiple sclerosis diagnosed at [address] lumbar spine. Dr. Jackson consulted. 5. Nicotine dependence. Patient declined nicotine patch at this time DVT prophylaxis Lovenox. GI prophylaxis Protonix Neurology and orthopedic services Repeat labs ordered Patient started on IV Solu-Medrol
--- NOTE | 2023-02-19 10:25 | P.DS ---
Providers Date of admission: 02/17/23 10:20 Expected date of discharge: 02/19/23 Attending physician: Sarah Reardon Consults: 02/17/23 10:19 Consult Physician Routine Consulting Provider: Dean Mendes Consult Reason/Comments: Bilateral lower extremity weakness and ataxia Do you want consulting provider notified?: Yes 02/17/23 11:47 Consult Physician Routine Consulting Provider: Shalini Jackson Consult Reason/Comments: Abnormal lumbar spine x-ray Do you want consulting provider notified?: Yes Primary care physician: Eileen Keys Hospital Course: Discharge diagnosis 1. Lower extremity weakness 3. History of multiple sclerosis diagnosed at [address] lumbar spine. Dr. Jackson consulted. 5. Nicotine dependence. Patient declined nicotine patch at this time Hospital course This is a 42-year-old female patient of Dr. Keys who presented with concerns of increased lower extremity weakness that has been progressing over the past few days. Patient also reports increased fatigue noted over the past few months. Patient has a past medical history of MS in which she states she was diagnosed at 17 but has not required any further treatments since initial diagnosis. Patient also is a current every day smoker. Head CT completed showing no acute intracranial abnormality seen. 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 Lumbar spine x-ray completed showing slight dextroconvex curvature of lumbar spine. Right L5-S1 level corresponds to the site of a secondary contact with severe discogenic endplate degenerative change towards the right bulging disc impressing on the ventricle sac from L3 to S1. At this time patient will be admitted started on IV Solu-Medrol. Neurology orthopedic service is consulted. Repeat labs ordered for a.m. On 02/18/2023 patient was seen and examined on the medical floor she is alert and oriented 3 in no apparent distress there is no fever or chills no headache or dizziness no chest pain no shortness of breath no cough no nausea or vomiting no abdominal pain no diarrhea and no urinary symptoms. Patient was started on IV steroids On 02/19/2023 she is alert and oriented 3. Patient has completed last dose of IV steroids. Patient will be DC'd home patient to follow-up with neurologist outpatient in 1-2 weeks. At this time patient reports significant improvement to lower extreme weakness. Patient denies chest pain or shortness breath. Patient denies nausea vomiting or diarrhea. Patient denies any urinary burning or frequency Patient Condition at Discharge: Stable Plan - Discharge Summary Discharge Rx Participant: No New Discharge Prescriptions: New Cholecalciferol [Vitamin D3 (25 Mcg = 1000 Iu)] 25 mcg PO DAILY 30 Days #30 tab Discharge Medication List Cholecalciferol [Vitamin D3 (25 Mcg = 1000 Iu)] 25 mcg PO DAILY 30 Days #30 tab 02/19/23 [Rx] Follow up Appointment(s)/Referral(s): Eileen Keys MD [Primary Care Provider] - 02/22/23 1:45 pm Sharan Burns PAC [PHYSICIAN BLOCK BREAKER OPERATOR] - 03/12/23 10:00 am (Patient may follow-up with Sharan Burns PA-C or Dr. Kevon Jackson at [facility] in 3 weeks following discharge. Patient may cancel her scheduled follow-up appointment if her symptoms improve. ) Pio Gray MD [Medical Doctor] - 1 Week Discharge Disposition: HOME SELF-CARE
--- NOTE | 2023-02-19 16:10 | P.PN ---
Subjective Progress Note Date: 02/19/23 I personally seen the patient at bedside a follow-up and she stated that after the third dose of IV steroids as she knows drastic improvement. Denies of any new neurological deficit. She feels back to baseline. Objective - Vital Signs Vital signs: Vital Signs Temp 98.5 F 02/19/23 07:01 Pulse 53 L 02/19/23 07:01 Resp 15 02/19/23 07:01 BP 126/77 02/19/23 07:01 Pulse Ox 99 02/19/23 07:01 FiO2 Intake & Output 02/18/23 02/19/23 02/19/23 18:59 06:59 18:59 Intake Total 540 Balance 540 Intake: Oral 540 Other: Voiding Method Toilet Toilet # Voids 2 2 - Exam GENERAL: The patient is lying in bed and is not in acute distress. NEUROLOGICAL: Higher mental function: The patient is awake, alert, oriented to self, place and time. Patient is following commands. No aphasia and no neglect. Cranial nerves: The pupils are round, equal and reactive to light and accommodation. Visual jaime are full to confrontation throughout. Extraocular movement is intact no nystagmus is noted. Facial sensation is normal to touch throughout. The facial strength is normal throughout. Hearing is normal bilaterally to hand rub. Tongue is midline and moved [id number] without any difficulty. No dysarthria is noted. Shoulder shrug is normal bilaterally. Motor: Gait is normal. The strength is 5 over 5 throughout. Normal tone and bulk. Cerebellum: Normal finger to nose heel to gleason bilaterally. Sensation: Sensation is normal to touch throughout. Reflexes (right/left): Biceps 2+/3+, triceps 2+/2+; brachioradialis 2+/2-3+; patellar2-3+/3+; ankles 2+. Plantars are downgoing bilaterally. SOME OF THE WORK-UP DURING THIS HOSPITAL VISIT CONSISTED OF: Vitamin B12 is 253 and the normal supposed to be 200 09/10/1943 Folate is 2.40 which is considered deficient TSH is 1.670. Urine drug screen is positive for marijuana otherwise rest is not detected. Serum alcohol was less than 10. MRI of the brain and cervical spine is reported as no evidence for acute/subacute infarct. Few T2/flare hyperintense lesion identified throughout the brain with largest in the right frontal parietal lobe are ventricular region measuring up to 1.5 cm. These likely represent demyelinating process from reported multiple sclerosis. None of these lesions demonstrate the contrast and has to suggest active the monitoring process. No abnormal cervical spinal cord the or abnormal cervical and has been. C5-C6 is 6 degenerative disc disease i ncluding and disc bulge with mild spinal canal stenosis. There is uncovertebral hypertrophy at this level with moderate right neural foraminal stenosis. C7-T1 disc herniation without significant spinal canal stenosis. I personally reviewed the MRI and agree with report. - Labs CBC & Chem 7: 02/18/23 07:24 02/18/23 07:24 Assessment and Plan Assessment: This is a 42-year-old woman with history of multiple sclerosis at the age of 17 is not followed up with a neurologist and been on disease modifying therapy, stroke since the age of 17 and she had paresthesia over the left side that resolved who presented emergency department because of the gait disturbance that started about 3 days ago and she stated she initially had the pain in her thighs then she felt her legs were like Jell-O the progressively got worse. * Probable multiple sclerosis exacerbation. On MRI the brain and cervical spine there is no lesions that enhance but does have lesions on the FLAIR that are suggestive of multiple sclerosis. Patient does not have any previous MRIs in our system and the last imaging she stated it was at the age of 17 so unknown her lesion at that time. * Folate deficiency (2.4) * Low normal vitamin B12 (253) * History of multiple sclerosis since age of 17 and had workup of MRI the brain and cervical spine as well as lumbar puncture and she stated that that was confirmed for MS and has not followed up with a neurologist since the age of 17 or been on disease modifying therapies since she felt she was stable * History of reported stroke at the age of 17 and she was on control pill and she had paresthesia over the left side that has resolved * Tobacco use Plan: Today is day 3 of IV steroids. Will give her 1000mg once today in morning rather than bid since hoping to leave. Patient feels he is back to baseline and no neurological deficit. Her gait has improved and no weakness is noted. I notified the patient that she needs to follow-up with a neurologist as an outpatient regarding her multiple sclerosis and the highly recommend that she needs to be on disease modifying therapy and will defer choice of medication to her neurologist. She was highly encouraged to follow-up with somebody as an outpatient. Regarding her full deficiency I started her on the folic acid 1 mg daily Because of low vitamin B12 I gave her vitamin B12 1000 g IM once then after that PO I also started her on vitamin D3 1000IU daily. Recommend the patient to follow-up with a neurologist outpatient within 1-2 weeks We'll defer the rest of the medical management to primary team Otherwise no additional neurological workup. The plan was discussed with the patient and her nurse Time with Patient: Less than 30
== END 2023-02-19 11:06 | disposition home or self-care (01) ==
LOC: EC 08:34 → SUPCPDRO 08:34 → 4SSUR 10:20 → INTOOBSV 10:20 → 4SSUR 10:40
PROVIDERS: ADMIT Internal Medicine; ATTEND Internal Medicine
DX: R53.1 Weakness (principal); R26.2 Difficulty in walking, not elsewhere classified; R53.83 Other fatigue; G35 Multiple sclerosis; R93.49 Abnormal radiologic findings on diagnostic imaging of other urinary organs; E53.8 Deficiency of other specified B group vitamins; F17.210 Nicotine dependence, cigarettes, uncomplicated; M41.50 Other secondary scoliosis, site unspecified; M51.27 Other intervertebral disc displacement, lumbosacral region; M51.37 Other intervertebral disc degeneration, lumbosacral region; M47.817 Spondylosis without myelopathy or radiculopathy, lumbosacral region; Z88.2 Allergy status to sulfonamides; Z71.9 Counseling, unspecified; Z86.73 Personal history of transient ischemic attack (TIA), and cerebral infarction without residual deficits
CPT/HCPCS: 96366 ×2; 96372 ×2; 96365; 99285; 36415; 94760; 93005; 97161; 80053 ×2; 82607; 82550; 82746; 83605; 83735; 84443; 84484; 85025 ×2; 85610; 85730; 81001; 80306; 71046; 72131; 70450; 70553; 72156; G0378 ×2; G0480; J3420; J3411; J2930 ×3; A9585; 80320

== ENCOUNTER 2023-10-08 12:22 | Emergency (ER) | payer OTHER ==
[2023-10-08 12:55] VITALS: RESP 18
--- NOTE | 2023-10-08 13:32 | ED ---
URI HPI - General Chief Complaint: Upper Respiratory Infection Stated Complaint: covid test Time Seen by Provider: 10/08/23 12:28 Source: patient, RN notes reviewed Mode of arrival: ambulatory Limitations: no limitations - History of Present Illness Initial Comments: 43-year-old female presents emergency department with chief complaint of cough and cold-like symptoms. Patient is concerned that she may have COVID-19. Patient states that she was around someone that was sick. Patient denies fever but states that she has chills body aches and congestion. Denies chest pain shortness of breath - Related Data Previous Rx's Medication Instructions Recorded Cholecalciferol [Vitamin D3 (25 25 mcg PO DAILY 30 Days #30 tab 02/19/23 Mcg = 1000 Iu)] Allergies Allergy/AdvReac Type Severity Reaction Status Date / Time Sulfa (Sulfonamide Allergy Unknown Verified 02/17/23 10:53 Antibiotics) Childhood Review of Systems ROS Statement: Those systems with pertinent positive or pertinent negative responses have been documented in the HPI. ROS Other: All systems not noted in ROS Statement are negative. Past Medical History Past Medical History: No Reported History, Musculoskeletal Disorder, Neurologic Disorder Additional Past Medical History / Comment(s): MS, but does not take medication for it per patient, ETOH abuse History of Any Multi-Drug Resistant Organisms: None Reported Past Surgical History: No Surgical Hx Reported Past Psychological History: No Psychological Hx Reported Smoking Status: Never smoker Past Alcohol Use History: Abuse, Daily, Heavy Past Drug Use History: None Reported, Marijuana General Exam Limitations: no limitations General appearance: alert, in no apparent distress Head exam: Present: atraumatic, normocephalic, normal inspection Eye exam: Present: normal appearance, PERRL, EOMI. Absent: scleral icterus, conjunctival injection, periorbital swelling ENT exam: Present: normal exam, normal oropharynx, mucous membranes moist Neck exam: Present: normal inspection, full ROM. Absent: tenderness, meningismus, lymphadenopathy Respiratory exam: Present: wheezes. Absent: normal lung sounds bilaterally, respiratory distress, rales, rhonchi, stridor Cardiovascular Exam: Present: regular rate, normal rhythm, normal heart sounds. Absent: systolic murmur, diastolic murmur, rubs, gallop, clicks Course Vital Signs 10/08/23 12:33 Temperature 98.2 F Pulse Rate 88 Respiratory 18 Rate Blood Pressure 139/97 O2 Sat by Pulse 100 Oximetry Medical Decision Making - Medical Decision Making Was pt. sent in by a medical professional or institution (KENDRA Ortiz, HOT DOG VENDER, urgent care, hospital, or senior living...) When possible be specific @ -No Did you speak to anyone other than the patient for history (EMS, parent, family, police, friend...)? What history was obtained from this source @ -No Did you review nursing and triage notes (agree or disagree)? Why? @ -I reviewed and agree with nursing and triage notes Were old charts reviewed (outside hosp., previous admission, EMS record, old EKG, old radiological studies, urgent care reports/EKG's, senior living records)? Report findings @ -No old charts were reviewed Differential Diagnosis (chest pain, altered mental status, abdominal pain women, abdominal pain men, vaginal bleeding, weakness, fever, dyspnea, syncope, headache, dizziness, GI bleed, back pain, seizure, CVA, palpatations, mental health, musculoskeletal)? @ -[COVID 19, RSV, influenza, pneumonia, acute bronchitis, URI, this list is not all inclusive EKG interpreted by me (3pts min.). @ -None X-rays interpreted by me (1pt min.). @ -[None done CT interpreted by me (1pt min.). @ -None done U/S interpreted by me (1pt. min.). @ -None done What testing was considered but not performed or refused? (CT, X-rays, U/S, labs)? Why? @ -None What meds were considered but not given or refused? Why? @ -None Did you discuss the management of the patient with other professionals (professionals i.e. KENDRA Ortiz, HOT DOG VENDER, lab, RT, psych nurse, social science research assistant, coach builder, teacher, child support case officer, telephonic case manager)? Give summary @ -No Was smoking cessation discussed for >3mins.? @ -No Was critical care preformed (if so, how long)? @ -No Were there social determinants of health that impacted care today? How? (Homelessness, low income, unemployed, alcoholism, drug addiction, transportation, low edu. Level, literacy, decrease access to med. care, penitentiary, rehab)? @ -No Was there de-escalation of care discussed even if they declined (Discuss DNR or withdrawal of care, Hospice)? DNR status @ -No What co-morbidities impacted this encounter? (DM, HTN, Smoking, COPD, CAD, Cancer, CVA, ARF, Chemo, Hep., AIDS, mental health diagnosis, sleep apnea, morbid obesity)? @ -None Was patient admitted / discharged? Hospital course, mention meds given and route, prescriptions, significant lab abnormalities, going to OR and other pertinent info. @ -[Discharge patient has negative viral swab. Patient has a viral URI patient is in no signs distress will be discharged in stable condition with treatment as discussed. Undiagnosed new problem with uncertain prognosis? @ -No Drug Therapy requiring intensive monitoring for toxicity (Heparin, Nitro, Insulin, Cardizem)? @ -No Were any procedures done? @ -No Diagnosis/symptom? @ -Viral URI] Acute, or Chronic, or Acute on Chronic? @ -Acute Uncomplicated (without systemic symptoms) or Complicated (systemic symptoms)? @ -Uncomplicated Side effects of treatment? @ -No Exacerbation, Progression, or Severe Exacerbation? @ -No Poses a threat to life or bodily function? How? (Chest pain, USA, NM, pneumonia, PE, COPD, DKA, ARF, appy, cholecystitis, CVA, Diverticulitis, Homicidal, Suicidal, threat to staff... and all critical care pts) @ -No - Lab Data Lab Results 10/08/23 Range/Units 12:39 Influenza Type A (PCR) Not Detected (Not Detectd) Influenza Type B (PCR) Not Detected (Not Detectd) RSV (PCR) Not Detected (Not Detectd) SARS-CoV-2 (PCR) Not Detected (Not Detectd) Disposition Clinical Impression: Acute upper respiratory infection Disposition: HOME SELF-CARE Condition: Stable Instructions (If sedation given, give patient instructions): Upper Respiratory Infection (ED) Additional Instructions: Please return to the Emergency Department if symptoms worsen or any other concerns. Is patient prescribed a controlled substance at d/c from ED?: No Referrals: Eileen Keys MD [Primary Care Provider] - 1-2 days Time of Disposition: 13:31
[2023-10-08 14:01] VITALS: BP 135/77; PULSE 84; TEMP 98.1
== END 2023-10-08 13:40 | disposition home or self-care (01) ==
LOC: EC 12:22
DX: J06.9 Acute upper respiratory infection, unspecified (principal); F12.90 Cannabis use, unspecified, uncomplicated; Z88.2 Allergy status to sulfonamides; Z20.822 Contact with and (suspected) exposure to COVID-19
CPT/HCPCS: 87636; 99283

== ENCOUNTER 2023-12-20 02:24 | Emergency (ER) | payer SELFPAY ==
[2023-12-20 03:01] VITALS: BP 154/96; PULSE 118; RESP 22; TEMP 98.8
== END 2023-12-20 02:55 | disposition left against medical advice (07) ==
LOC: EC 02:24
DX: R79.9 Abnormal finding of blood chemistry, unspecified (principal); Z53.21 Procedure and treatment not carried out due to patient leaving prior to being seen by health care provider
CPT/HCPCS: 99499

== ENCOUNTER 2024-10-24 05:54 | Emergency (ER) | payer OTHER ==
[2024-10-24 05:59] VITALS: RESP 18
--- NOTE | 2024-10-24 06:54 | ED ---
General Adult HPI - General Chief complaint: Extremity Injury, Upper Stated complaint: lft hand injury Time Seen by Provider: 10/24/24 06:12 Source: patient, RN notes reviewed Mode of arrival: ambulatory - History of Present Illness Initial comments: 44-year-old female presents to the emergency department for evaluation of left fourth finger pain. Patient states that she noticed this when she woke up this morning. She states that it seems to be getting worse with time. She notes that it mostly started in the cuticle. She reports that she can move her finger without any limitations. Denies any recent fever, chills. She does report a history of nail biting. - Related Data Previous Rx's Medication Instructions Recorded Cholecalciferol [Vitamin D3 (25 25 mcg PO DAILY 30 Days #30 tab 02/19/23 Mcg = 1000 Iu)] Cyclobenzaprine [Flexeril] 5 mg PO TID PRN #15 tablet 12/28/23 predniSONE 50 mg PO DAILY #5 tab 12/28/23 Cephalexin [Keflex] 500 mg PO Q6HR #28 cap 10/24/24 Allergies Allergy/AdvReac Type Severity Reaction Status Date / Time Sulfa (Sulfonamide Allergy Unknown Verified 10/24/24 05:59 Antibiotics) Childhood Review of Systems ROS Statement: Those systems with pertinent positive or pertinent negative responses have been documented in the HPI. ROS Other: All systems not noted in ROS Statement are negative. Past Medical History Past Medical History: No Reported History, Musculoskeletal Disorder, Neurologic Disorder Additional Past Medical History / Comment(s): MS, but does not take medication for it per patient, ETOH abuse History of Any Multi-Drug Resistant Organisms: None Reported Past Surgical History: No Surgical Hx Reported Past Psychological History: No Psychological Hx Reported Smoking Status: Never smoker Past Alcohol Use History: Abuse, Daily, Heavy Past Drug Use History: None Reported, Marijuana General Exam Limitations: no limitations General appearance: alert, in no apparent distress Head exam: Present: atraumatic, normocephalic, normal inspection Eye exam: Present: normal appearance, PERRL, EOMI. Absent: scleral icterus, conjunctival injection, periorbital swelling ENT exam: Present: normal exam, mucous membranes moist Extremities exam: Present: full ROM, tenderness (Distal left fourth finger), normal capillary refill, other (Paronychia present to the left fourth finger). Absent: pedal edema, joint swelling, calf tenderness Neurological exam: Present: alert, oriented X3 Psychiatric exam: Present: normal affect, normal mood Skin exam: Present: warm, dry, intact, erythema (Distal left fourth finger di stal to the DIP). Absent: rash Course Vital Signs 10/24/24 05:56 Temperature 98.2 F Pulse Rate 75 Respiratory 18 Rate Blood Pressure 144/90 O2 Sat by Pulse 100 Oximetry Procedures - Incision & Drainage Consent Obtained: verbal consent Indication: Paronychia Site: hand I&D Cleaning Method: Alcohol Wipe Sterile Field Used?: No Scalpel Used: #11 I&D Drainage Obtained: Blood Insertion of drain: No Patient Tolerated Procedure: well, no complications Medical Decision Making - Medical Decision Making Was pt. sent in by a medical professional or institution (KENDRA Ortiz, SUPPRESSION CREW LEADER, urgent care, hospital, or retirement...) When possible be specific @ -No Did you speak to anyone other than the patient for history (EMS, parent, family, police, friend...)? What history was obtained from this source @ -No Did you review nursing and triage notes (agree or disagree)? Why? @ -I reviewed and agree with nursing and triage notes Were old charts reviewed (outside hosp., previous admission, EMS record, old EKG, old radiological studies, urgent care reports/EKG's, retirement records)? Report findings @ -No old charts were reviewed Differential Diagnosis (chest pain, altered mental status, abdominal pain women, abdominal pain men, vaginal bleeding, weakness, fever, dyspnea, syncope, headache, dizziness, GI bleed, back pain, seizure, CVA, palpatations, mental health, musculoskeletal)? @ -Differential Musculoskeletal Muscular strain, contusion, ligament sprain, fracture, arthritis, septic arthritis, bursitis, cellulitis, muscle spasm, nerve compression, DVT, arterial occlusion, herpes zoster, electrolyte abnormality, tumor.... This is not meant to be in all inclusive list EKG interpreted by me (3pts min.). @ -None X-rays interpreted by me (1pt min.). @ -X-ray of the finger showed no evidence of radiopaque foreign body. CT interpreted by me (1pt min.). @ -None done U/S interpreted by me (1pt. min.). @ -None done What testing was considered but not performed or refused? (CT, X-rays, U/S, labs)? Why? @ -None What meds were considered but not given or refused? Why? @ -None Did you discuss the management of the patient with other professionals (professionals i.e. , PA, SUPPRESSION CREW LEADER, lab, RT, psych nurse, outreach and education social worker, brim welt sewing machine operator, teacher, county health officer, onsite case manager)? Give summary @ -No Was smoking cessation discussed for >3mins.? @ -No Was critical care preformed (if so, how long)? @ -No Were there social determinants of health that impacted care today? How? (Homelessness, low income, unemployed, alcoholism, drug addiction, transportation, low edu. Level, literacy, decrease access to med. care, senior living, rehab)? @ -No Was there de-escalation of care discussed even if they declined (Discuss DNR or withdrawal of care, Hospice)? DNR status @ -No What co-morbidities impacted this encounter? (DM, HTN, Smoking, COPD, CAD, Cancer, CVA, ARF, Chemo, Hep., AIDS, mental health diagnosis, sleep apnea, morbid obesity)? @ -None Was patient admitted / discharged? Hospital course, mention meds given and route, prescriptions, significant lab abnormalities, going to OR and other pertinent info. @ -Discharge. Patient presented emergency department for evaluation of left fourth finger swelling. Patient has a history of nail biting. X-rays were obtained because patient has concern of foreign body. X-rays revealed no evidence of radiopaque foreign body. Attempted drainage achieved sanguinous d ischarge. Patient was administered a dose of Keflex in the ED. Prescription sent to the patient's pharmacy. She will be discharged home advised follow-up to her primary care provider. She is understanding agreeable discharge plan. Patient stable at time of discharge. Case discussed with Dr. Martinez. Undiagnosed new problem with uncertain prognosis? @ -No Drug Therapy requiring intensive monitoring for toxicity (Heparin, Nitro, Insulin, Cardizem)? @ -No Were any procedures done? @ -No Diagnosis/symptom? @ -Paronychia Acute, or Chronic, or Acute on Chronic? @ -Acute Uncomplicated (without systemic symptoms) or Complicated (systemic symptoms)? @ -Uncomplicated Side effects of treatment? @ -No Exacerbation, Progression, or Severe Exacerbation? @ -No Poses a threat to life or bodily function? How? (Chest pain, USA, OR, pneumonia, PE, COPD, DKA, ARF, appy, cholecystitis, CVA, Diverticulitis, Homicidal, Suicidal, threat to staff... and all critical care pts) @ -No Disposition Clinical Impression: Paronychia Disposition: HOME SELF-CARE Condition: Stable Instructions (If sedation given, give patient instructions): Paronychia (ED) Additional Instructions: Please citrus picker antibiotics and take to completion. Follow-up with your primary care provider. Return to the emergency department for new or worsening symptoms. Prescriptions: Cephalexin [Keflex] 500 mg PO Q6HR #28 cap Is patient prescribed a controlled substance at d/c from ED?: No Referrals: Nonstaff,Physician [Primary Care Provider] - 1-2 days
[2024-10-24] MEDS: CEPHALEXIN 500 MG CAP PO STA (06:59)
--- NOTE | 2024-10-24 07:03 | XR ---
EXAMINATION TYPE: XR finger LT DATE OF EXAM: 10/24/2024 6:58 AM INDICATION: Patient age:Female; 44 years old; Reason for study: 4th finger ?fb; PHH. pain COMPARISON: None TECHNIQUE: Frontal, lateral and oblique views of the left hand were obtained. FINDINGS: Normal alignment of the visualized joints. No acute osseous pathology is identified. No e vidence of soft tissue swelling. Ring jewelry identified involving the third digit. No unexpected rad iopaque foreign body identified. IMPRESSION: 1. No acute osseous pathology. 2. No unexpected radiopaque foreign body identified. [facility], , 10/24/2024 7:01 AM
[2024-10-24 08:24] VITALS: BP 140/88; PULSE 71; TEMP 98.1
== END 2024-10-24 08:22 | disposition home or self-care (01) ==
LOC: EC 05:54
DX: L03.012 Cellulitis of left finger (principal); Z88.2 Allergy status to sulfonamides
CPT/HCPCS: 10060; 99283

== ENCOUNTER 2024-10-24 17:10 | Emergency (ER) | payer OTHER ==
[2024-10-24 17:19] VITALS: BP 188/87; PULSE 131; RESP 18; TEMP 97.8
--- NOTE | 2024-10-24 17:42 | ED ---
General Adult HPI - General Chief complaint: Extremity Injury, Upper Stated complaint: left arm pain, numbness in hand Time Seen by Provider: 10/24/24 17:27 Source: patient, RN notes reviewed Mode of arrival: ambulatory Limitations: no limitations - History of Present Illness Initial comments: This is a 44-year-old female presenting with discoloration and left third and fourth digits. Patient was seen in this ER earlier this morning for similar complaint, diagnosed with paronychia prior to discharge. Patient states discoloration has worsened with associated pain, tingling and heaviness in entirety of left upper extremity. Patient denies hemiplegia, paresthesia or loss of hand motor function. - Related Data Previous Rx's Medication Instructions Recorded Cholecalciferol [Vitamin D3 (25 25 mcg PO DAILY 30 Days #30 tab 02/19/23 Mcg = 1000 Iu)] Cyclobenzaprine [Flexeril] 5 mg PO TID PRN #15 tablet 12/28/23 predniSONE 50 mg PO DAILY #5 tab 12/28/23 Cephalexin [Keflex] 500 mg PO Q6HR #28 cap 10/24/24 Allergies Allergy/AdvReac Type Severity Reaction Status Date / Time Sulfa (Sulfonamide Allergy Unknown Verified 10/24/24 05:59 Antibiotics) Childhood Review of Systems ROS Statement: Those systems with pertinent positive or pertinent negative responses have been documented in the HPI. ROS Other: All systems not noted in ROS Statement are negative. Past Medical History Past Medical History: No Reported History, Musculoskeletal Disorder, Neurologic Disorder Additional Past Medical History / Comment(s): MS, but does not take medication for it per patient, ETOH abuse History of Any Multi-Drug Resistant Organisms: None Reported Past Surgical History: No Surgical Hx Reported Past Psychological History: No Psychological Hx Reported Smoking Status: Never smoker Past Alcohol Use History: Abuse, Daily, Heavy Past Drug Use History: None Reported, Marijuana General Exam - General Exam Comments Initial Comments: Visual Physical Exam Vital signs reviewed General: Well-appearing, nontoxic. Patient is very anxious about symptoms she is experiencing Head: Normocephalic, atraumatic Eyes: PERRLA, EOMI ENT: Airway patent Chest: Nonlabored breathing Skin: No visual rash, normal skin tone Neuro: Alert and oriented 3 Musculoskeletal: No gross abnormalities Limitations: no limitations Course Vital Signs 10/24/24 17:15 Temperature 97.8 F Pulse Rate 131 H Respiratory 18 Rate Blood Pressure 188/87 O2 Sat by Pulse 99 Oximetry Medical Decision Making - Medical Decision Making I completed the quick note portion of this chart signed DONOVAN Ardon Disposition Clinical Impression: Cervical nerve root impingement Disposition: HOME SELF-CARE Condition: Good Instructions (If sedation given, give patient instructions): Shoulder Pain (ED) Additional Instructions: Follow-up with orthopedics for any ongoing upper extremity pain/tingling. Gentle massage and warm compress to the affected trapezius muscle. Is patient prescribed a controlled substance at d/c from ED?: No Referrals: None,Stated [Primary Care Provider] - 1-2 days Dudley Mello DO [Doctor of Osteopathic Medicine] - 1-2 days Time of Disposition: 18:50
--- NOTE | 2024-10-24 18:38 | US ---
EXAMINATION TYPE: US venous doppler duplex UE LT DATE OF EXAM: 10/24/2024 COMPARISON: NONE CLINICAL INDICATION: Female, 44 years old with history of LUE heaviness, finger color change; patient states here this morning, LUE numbness and finger color change (purple). No swelling or hx of dvt. P atient very anxious and shaking throughout exam TECHNIQUE: Grayscale, color Doppler and spectral Doppler imaging of the upper extremity. SIDE PERFORMED: Left VESSELS IMAGED: IJV Subclavian Vein Axilla Vein Brachial Vein(s) Radial Paired Veins Ulnar Paired Veins Cephalic Vein* Basilic Vein* (*superficial vessels) FINDINGS: motion may be present in imaging due to patient shaking Left Arm: Negative for DVT Grayscale, color doppler, spectral doppler imaging performed of the deep veins of the upper extremiti es. IMPRESSION: No evidence for DVT. [facility], , 10/24/2024 6:36 PM
== END 2024-10-24 19:03 | disposition home or self-care (01) ==
LOC: EC 17:10
DX: M54.12 Radiculopathy, cervical region (principal); Z88.2 Allergy status to sulfonamides
CPT/HCPCS: 99284